=== PATIENT | female | born 1935 | race Caucasian/White ===

== ENCOUNTER 2023-05-05 11:52 | Inpatient (IN) ==
--- NOTE | 2023-05-05 12:21 | ED.PDOC ---
General ED Provider: Dr. WILLIAM ROSAS MD Chief Complaint: Neck Pain Non-Injury Stated Complaint: Patient with history of type 2 diabetes complains of acute onset of severe neck pain since yesterday states she may have hit her head against some towels yesterday. Patient of pain of her upper back and between her shoulder blades states pain is worse upon range of motion, denies history of trauma or injury. Denies radiation of pain from her neck into her arms. Denies associated headache, nausea, blurred vision, cough, fever, chills, arthralgia Time Seen by Provider: 05/05/23 12:19 Mode of Arrival: Wheelchair Information Source: Patient and Family Exam Limitations: No limitations Primary Care Provider: TRINI JERONIMO Seen Within Last 72 Hours for Same Complaint By: ED Nursing and Triage Documentation Reviewed and Agree: Yes What is Opioid Naive?: *Opioid Naive implies the patient is not already taking opioids or not chronically receiving opioids on a daily basis. *PRN dosing is not "usually" associated with tolerance. *Patients are at higher risk of over-sedation and aspiration. What is Opioid Tolerant?: *Opioid Tolerance implies less than the expected response to an opioid. *Acquired tolerance is defined by the patient taking 60mg of oral morphine daily (or equianalgesic dose of another opioid) for 1 week or more. *Often associated with chronic pain. *May take more than usual dose to achieve desired pain control. Review of Systems Review Of Systems Constitutional: Reports No symptoms Eyes: Reports No symptoms Ears, Nose, Mouth, Throat: Reports No symptoms Respiratory: Reports No symptoms Cardiac: Reports No symptoms GI: Reports No symptoms : Reports No symptoms Musculoskeletal: Reports Neck pain and Other (Mid to upper back pain) Skin: Reports No symptoms Neurological: Reports No symptoms Endocrine: Reports No symptoms Hematologic/Lymphatic: Reports No symptoms All Other Systems: Reviewed and Negative [facility] Medical History Acute Crohn's disease Anxiety Diabetes Female Reproductive History Menstrual Hx Hysterectomy: No Hx Tubal Ligation: No Physical Exam Physical Exam Appearance: Reports Ill-appearing and Other ( scalp examination there is no scalp swelling, tenderness, crepitus or ecchymosis) Ill-appearing: None Pain Distress: Moderate Eyes: Reports KATHIE, EOMI and Conjunctiva clear ENT: Reports Ears normal, Nose normal and Oropharynx normal Neck: Supple Respiratory: Reports Airway patent, Breath sounds clear and Breath sounds equal Cardiovascular: Reports RRR, Pulses normal, No rub and No murmur GI/: Reports Soft, Nontender, No masses and Bowel sounds normal Musculoskeletal: Reports Normal strength, Limited ROM and Other (There is moderate cervical vertebral and thoracic vertebral tenderness from T1-T10. There is no CVA tenderness on the.) Skin: Reports Warm and Dry Neurological: Reports Sensation intact, Motor intact, Reflexes intact, Cranial nerves intact and Alert Psychiatric: Reports Affect appropriate and Mood appropriate Interpretation Radiology Interpretation Radiology Interpretation By: Radiologist Radiology Results: Positive Exam Interpreted: CXR Xray Comments: Left basilar atelectasis Re-Evaluation Re-Evaluation Time of Re-Evaluation: 13:15 Status: Improved Vital Signs Stable: Yes Pain Level: pain resolved at 1315 with IV Toradol 15 mg Physician Notification Case Discussed Physician Notified: Discussed with hospitalist Keagan Holden Time of Notification: 16:25 Comments: Discussed results of all laboratory data and CT scan findings improved chest x- ray recommendations for observation Critical Care Note Critical Care Note Total Critical Care Time (mins): 0 Course Course 05/05/23 12:45 05/05/23 12:45 Orders, Labs, Meds: Lab Review 05/05/23 05/05/23 12:45 15:40 WBC 22.07 H RBC 4.68 Hgb 13.2 Hct 41.6 MCV 88.9 MCH 28.2 MCHC 31.7 L RDW Coeff of Juan Antonio 13.8 Plt Count 145 Immature Gran % (Auto) 0.5 Neut % (Auto) 92.9 H Lymph % (Auto) 1.6 L Wilson % (Auto) 4.9 Eos % (Auto) 0.0 Baso % (Auto) 0.1 Neut # (Auto) 20.5 H Lymph # (Auto) 0.4 L Wilson # (Auto) 1.1 Eos # (Auto) 0.0 Baso # (Auto) 0.0 Immature Gran # (Auto) 0.1 Sodium 129.3 L Potassium 4.15 Chloride 96.4 L Carbon Dioxide 27.1 Anion Gap 9.95 BUN 25.6 H Creatinine 0.93 Estimated GFR (MDRD) 57.00 BUN/Creatinine Ratio 27.52 Glucose 447.8 H Calcium 9.05 Total Bilirubin 1.15 AST 19.6 ALT 17.9 Alkaline Phosphatase 81.3 Total Protein 7.08 Albumin 3.97 Globulin 3.11 Albumin/Globulin Ratio 1.27 Urine Color Yellow Urine Clarity Cloudy Urine pH 5.0 Ur Specific [place] 1.020 Urine Protein 2+ H Urine Glucose (UA) 3+ H Urine Ketones Trace H Urine Blood Trace-intact H Urine Nitrite Negative Urine Bilirubin 1+ H Urine Urobilinogen 0.2 Ur Leukocyte Esterase Negative Urine Microscopic RBC 2-5 Ur Squamous Epith Cells 10-20 Ur Renal Epithelial Cell 2-5 Urine Bacteria Trace Urine Starch 2+ Acetone, Qual None Orders Category Date Time Status ED ACCUCHECK ASSESSMENT .ONCE EMERGENCY 05/05/23 14:40 Active ACETONE, QUALITATIVE Stat LAB 05/05/23 12:45 Completed BLOOD CULTURE (ED ONLY) Stat LAB 05/05/23 16:12 Ordered CBC W/ AUTO DIFF Stat LAB 05/05/23 12:45 Completed CMP [COMPREHENSIVE METABOLIC PANEL] Stat LAB 05/05/23 12:45 Completed COVID [SARS COV-2 RNA RAPID MALOU] Stat LAB 05/05/23 Uncollected URINALYSIS C & S IF INDICATED Stat LAB 05/05/23 15:40 Completed Insulin Regular, Human [Humulin R] Meds 05/05/23 13:10 Discontinued 4 unit IVP ONCE STA Ketorolac Tromethamine [Toradol] Meds 05/05/23 12:30 Discontinued 15 mg IVP ONCE STA Ondansetron HCl/Pf [Zofran 4 mg/2 ml] Meds 05/05/23 12:30 Discontinued 4 mg IVP ONCE STA Sodium Chloride 0.9% [Sodium Chloride] 500 ml Meds 05/05/23 12:30 Active IV BOLUS CHEST, 1V AP ONLY Stat RADS 05/05/23 13:[address] CERVICAL SPINE W/O CONTRAST Stat RADS 05/05/23 12:[address] HEAD W/O CONTRAST Stat RADS 05/05/23 12:[address] THORACIC SPINE W/O CONTRAST Stat RADS 05/05/23 12:30 Completed Medications Generic Name Dose Route Start Last Admin Trade Name Freq PRN Reason Stop Dose Admin Sodium Chloride 500 mls @ 100 mls/hr 05/05/23 12:30 05/05/23 12:52 Sodium Chloride IV 05/05/23 17:29 100 mls/hr BOLUS ONE Administration Discontinued Medications Generic Name Dose Route Start Last Admin Trade Name Freq PRN Reason Stop Dose Admin Insulin Human Regular 4 unit 05/05/23 13:10 05/05/23 13:28 Insulin Regular, Human 100 Unit/Ml (10ml) Vial IVP 05/05/23 13:11 4 unit ONCE STA Administration Ketorolac Tromethamine 15 mg 05/05/23 12:30 05/05/23 12:52 Ketorolac Tromethamine 15 Mg/Ml Vial IVP 05/05/23 12:31 15 mg ONCE STA Administration Ondansetron HCl 4 mg 05/05/23 12:30 05/05/23 12:52 Ondansetron Hcl/Pf 4 Mg/2 Ml Sdv IVP 05/05/23 12:31 4 mg ONCE STA Administration Vital Signs: Temp Pulse Resp BP Pulse Ox 05/05/23 11:58 97.8 F 86 20 138/84 94 L Discharge Plan Discharge Patient Disposition: PLACED OBSERVATION Discharge Problem: Hyperglycemia Leukocytosis Qualifiers: Leukocytosis type: unspecified Qualified Code(s): D72.829 - Elevated white blood cell count, unspecified Did you review [place] [employer] for ALL controlled substances?: Not Applicable ED Provider: WILLIAM ROSAS Condition: Stable Physician Progress Note: HISTORY obtained from the patient was his son who complains of acute onset of severe neck and upper back pain the past 2 days denies history of trauma injury unsure if she may have hit her head against the [place] yesterday but denies falling. Patient denies radiation of pain from her neck or back down her arms and legs. Denies difficulty breathing, shortness of breath, coughing, fever, chills. 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 Laboratory data CBC is within normal limits several white blood cell count of 22,000. The BMP is within normal limit except for a BUN of 25 and a glucose of 447. The acetone is negative. Portable chest x-ray interpretation radiologist consistent with atelectasis left base. The head CT scan without intravenous contrast interpretation per radiology shows no acute intracranial process. There is no hemorrhage there is no infarct there is no mass effect there is no midline shift. The thoracic spine CT without intravenous contrast is consistent with degenerative disc disease. Without evidence of fracture or subluxation. The cervical spine CT without intravenous contrast consistent with no acute fractures there is marked degenerative changes noted. There is disc narrowing from C2-C3, C3-C4, C4-C5, C5-C6, with anterior posterior osteophytes and C6-C7 with posterior osteophytes. Patient administered Toradol 15 mg IV with complete relief in pain at 1315 Patient given IV fluids normal saline 500 mL mL/hour, regular insulin 4 units IV. [id number] Patient has no known source of infection there is no tachycardia no tachypnea no fever. Urinalysis positive only for protein and glucose Differential diagnosis: 1) leukocytosis 2) hyperglycemia Discussed with hospitalist Keagan Holden at 1625 for observation []
[2023-05-05 12:50] LABS: BASOPHILS % (AUTO) 0.1 % (0.0-3.0); HEMATOCRIT 41.6 % (37.0-47.0); HEMOGLOBIN 13.2 g/dl (12.0-16.0); IMMATURE GRANULOCYTE # (AUTO) 0.1 (0.0-1.0); IMMATURE GRANULOCYTE % (AUTO) 0.5 % (0.0-5.0); LYMPHOCYTES # (AUTO) 0.4 K/uL (0.60-3.4); LYMPHOCYTES % (AUTO) 1.6 (10.0-50.0); MEAN CORPUSCULAR HEMOGLOBIN 28.2 pg (27.0-31.0); MEAN CORPUSCULAR HGB CONC 31.7 (31.8-35.4); MEAN CORPUSCULAR VOLUME 88.9 fl (81.0-99.0); MONOCYTES # (AUTO) 1.1 K/uL (0.4-2.0); MONOCYTES % (AUTO) 4.9 (0-10); NEUTROPHILS # (AUTO) 20.5 K/ul (2.0-6.9); NEUTROPHILS % (AUTO) 92.9 % (42.2-75.2); PLATELET COUNT 145 10^3/uL (140-440); RDW COEFFICIENT OF VARIATION 13.8 % (11.6-14.8); RED BLOOD COUNT 4.68 10^6/ul (4.20-5.40); WHITE BLOOD COUNT 22.07 K/ul (4.6-10.2)
[2023-05-05] MEDS: ZOFRAN 4 MG/2 ML IVP STA (12:52)
[2023-05-05] MEDS: TORADOL IVP STA (12:52)
[2023-05-05] MEDS: SODIUM CHLORIDE 500 ML IV ONE (12:52)
[2023-05-05 13:03] LABS: ALANINE AMINOTRANSFERASE 17.9 U/L (0-35); ALBUMIN 3.97 g/dL (3.5-5.0); ALKALINE PHOSPHATASE 81.3 U/L (53-141); ASPARTATE AMINO TRANSFERASE 19.6 U/L (14-36); BILIRUBIN,TOTAL 1.15 mg/dL (0.2-1.3); BLOOD UREA NITROGEN 25.6 mg/dL (7-17); CALCIUM 9.05 mg/dL (8.4-10.2); CARBON DIOXIDE 27.1 mmol/L (22-30.0); CHLORIDE 96.4 mmol/L (98-107); CREATININE 0.93 mg/dL (0.60-1.30); GLUCOSE 447.8 mg/dL (74-106); POTASSIUM 4.15 mmol/L (3.5-5.1); SODIUM 129.3 mmol/L (134.5-145); TOTAL PROTEIN 7.08 g/dL (6.3-8.2)
[2023-05-05] MEDS: HUMULIN R IVP STA (13:28)
--- NOTE | 2023-05-05 14:17 | DI ---
EXAM: CHEST RADIOGRAPH; SINGLE VIEW HISTORY: Coughing. COMPARISON: CT chest 02/17/2022. FINDINGS: Trachea is midline. Cardiomediastinal silhouette is within normal limits. Atelectasis in the left l jones base. No pneumothorax or large pleural effusions. Osseous structures are intact. IMPRESSION: Atelectasis in the left lung base.
--- NOTE | 2023-05-05 14:18 | CT ---
EXAMINATION: HEAD CT WITHOUT CONTRAST HISTORY: Trauma TECHNIQUE: Noncontrast CT of the brain was performed with images acquired from skull base to vertex. 2-D coronal and sagittal reformatted images were obtained from the axial source images. Contrast Dose: None. CT Dose Reduction Techniques Performed: Yes. COMPARISON: None. FINDINGS: Topogram demonstrates no significant abnormality. Intraparenchymal hemorrhage: None. Parenchyma: Normal wilde-white differentiation. No mass effect or midline shift. Chronic: Mild decreased attenuation of the periventricular white matter consistent with microangiopat hic ischemic change. Vascular calcifications consistent with arthrosclerosis. Extra-axial spaces and basal cisterns: Normal. Ventricles: Mild enlargement of the ventricles and subarachnoid spaces consistent with atrophy. Paranasal sinuses and mastoid air cells: Visualized portions of paranasal sinuses are clear. Mastoid air cells are clear. Orbits: Normal visualized portions. Sella/Skull Base: Normal. Other: Scalp and visualized soft tissues are normal. Calvarium is normal. IMPRESSION: 1. No acute intracranial process. 2. Mild microangiopathic ischemic changes and atrophy are noted. All CT scans are performed using dose optimization techniques as appropriate to the performed exam an d include at least one of the following: Automated exposure control, adjustment of the mA and/or kV according t o size, and the use of iterative reconstruction technique.
--- NOTE | 2023-05-05 14:21 | CT ---
EXAM: CT THORACIC SPINE WITHOUT CONTRAST HISTORY: Upper back pain COMPARISON: Correlation with CT chest from 02/17/2022. FINDINGS: Axial CT images of the thoracic spine without contrast and multiplanar reformatted images. Generalized osteopenia. This limits evaluation for subtle, nondisplaced fractures. As seen, no discrete fracture line. The vertebral body heights are grossly maintained. Multilevel degenerative changes. Curvature of the spine. Suspected bone island in the T4 vertebral body. ASVD. Atelectasis and / or scarring in the dependent lungs. IMPRESSION: No definitive findings of acute fracture. If symptoms persist, or if there is clinical concern for occult injury, recommend follow-up MRI exami nation. Please see above description. All CT scans are performed using dose optimization techniques as appropriate to the performed exam an d include at least one of the following: Automated exposure control, adjustment of the mA and/or kV according t o size, and the use of iterative reconstruction technique.
--- NOTE | 2023-05-05 14:24 | CT ---
EXAM: CT CERVICAL SPINE. HISTORY: Neck pain. No acute injury. COMPARISON: None. TECHNIQUE: Contiguous axial images at 2 mm intervals were obtained from the base of the skull to the thoracic spine. Sagittal and coronal reformats were reviewed. No contrast was given. FINDINGS: There is slight anterolisthesis of C4 and C5 measuring less than 2 mm. The vertebral heigh ts are well maintained. There are no acute or healing fractures. There are no lytic or blastic lesi ons. No disc bulges are identified. The soft tissues are normal. The airway is widely patent. Li mited views of the lung apices are normal. C 2-3: There is hypertrophy on the right. No spinal canal or neural foraminal narrowing. C 3-4: Disc narrowing. Facet hypertrophy, left greater right. Minimal left neural foraminal narrowi ng C 4-5: Disc narrowing. Facet perch on the right. Right neural foraminal narrowing. C 5-6: Disc narrowing. Anterior posterior osteophytes. Mild bilateral neural foraminal narrowing. C 6-7: Disc narrowing. Posterior osteophytes. Minimal bilateral neural foraminal narrowing. IMPRESSION: 1. No acute fractures. 2. Degenerative changes of the spine as described. All CT scans are performed using dose optimization techniques as appropriate to the performed exam an d include at least one of the following: Automated exposure control, adjustment of the mA and/or kV according t o size, and the use of iterative reconstruction technique.
[2023-05-05 15:46] LABS: BILIRUBIN,URINE 1+ (NEGATIVE); COLOR,URINE Yellow (YELLOW); KETONES,URINE Trace (NEGATIVE); LEUKOCYTE ESTERASE ,URINE Negative (NEGATIVE); NITRITE,URINE Negative (NEGATIVE); PROTEIN,URINE 2+ (NEGATIVE); URINE, BLOOD Trace-intact (NEGATIVE); UROBILINOGEN,URINE 0.2 (0.2)
[2023-05-05 15:51] LABS: CLARITY,URINE CLOUDY (CLEAR); GLUCOSE, URINE (UA) 3+ (NEGATIVE)
[2023-05-05 15:53] LABS: BACTERIA,URINE TRACE (NOT PRESENT); STARCH,URINE 2+ (NOT PRESENT)
[2023-05-05] MEDS ORDERED: ZOFRAN 4 MG/2 ML IVP PRN (16:39)
[2023-05-05 16:50] LABS: SARS COV-2 RNA RAPID NAAT NEGATIVE (NEGATIVE)
[2023-05-05 17:25] LABS: MOLECULAR FLU A NEGATIVE BY NAAT (NEGATIVE); MOLECULAR FLU B NEGATIVE BY NAAT (NEGATIVE); RSV MOLECULAR NEGATIVE BY NAAT (NEGATIVE)
[2023-05-05] MEDS: ROCEPHIN 1 GM/50 ML D5W 1 GM/50 ML BAG IV ONE (17:27)
[2023-05-05 18:53] VITALS: BMI 25.2
[2023-05-05 19:13] LABS: HEMATOCRIT 42.5 % (37.0-47.0); HEMOGLOBIN 13.7 g/dl (12.0-16.0); MEAN CORPUSCULAR HEMOGLOBIN 28.9 pg (27.0-31.0); MEAN CORPUSCULAR HGB CONC 32.2 (31.8-35.4); MEAN CORPUSCULAR VOLUME 89.7 fl (81.0-99.0); PLATELET COUNT 121 10^3/uL (140-440); RDW COEFFICIENT OF VARIATION 13.7 % (11.6-14.8); RED BLOOD COUNT 4.74 10^6/ul (4.20-5.40)
[2023-05-05 19:16] LABS: WHITE BLOOD COUNT 13.43 K/ul (4.6-10.2)
[2023-05-05 19:17] LABS: ANISOCYTOSIS NOT PRESENT (NOT PRESENT)
[2023-05-05] MEDS: SODIUM CHLORIDE 1,000 ML IV SCH (20:51)
[2023-05-05] MEDS: HUMULIN R SUBCUT PRN (20:52)
[2023-05-05 21:26] LABS: BORDETELLA PARAPERTUSSIS (PCR) NOT DETECTED (NOT DETECT); BORDETELLA PERTUSSIS (PCR) NOT DETECTED (NOT DETECT); CHLAMYDIA PNEUMONIAE (PCR) NOT DETECTED (NOT DETECT); CORONAVIRUS 229E (PCR) NOT DETECTED (NOT DETECT); CORONAVIRUS HKU1 (PCR) NOT DETECTED (NOT DETECT); CORONAVIRUS NL63 (PCR) NOT DETECTED (NOT DETECT); CORONAVIRUS OC43 (PCR) NOT DETECTED (NOT DETECT); HUMAN METAPNEUMOVIRUS (PCR) NOT DETECTED (NOT DETECT); HUMAN RHINOVIRUS/ENTEROV (PCR) NOT DETECTED (NOT DETECT); INFLUENZA B (PCR) NOT DETECTED (NOT DETECT); MYCOPLASMA PNEUMONIAE (PCR) NOT DETECTED (NOT DETECT); PARAINFLUENZA VIRUS 1 (PCR) NOT DETECTED (NOT DETECT); PARAINFLUENZA VIRUS 2 (PCR) NOT DETECTED (NOT DETECT); PARAINFLUENZA VIRUS 3 (PCR) NOT DETECTED (NOT DETECT); PARAINFLUENZA VIRUS 4 (PCR) NOT DETECTED (NOT DETECT); RESPIRATORY SYNCYTIAL V (PCR) NOT DETECTED (NOT DETECT); SARS_COV_2 (PCR) NOT DETECTED (NOT DETECT)
[2023-05-05] MEDS: MAXIPIME 2 GM/50 ML D5W 2 GM/50 ML BAG IV SCH (22:03)
--- NOTE | 2023-05-05 22:07 | CT ---
EXAM: CHEST CTA WITH CONTRAST (PULMONARY ARTERY) HISTORY: TECHNIQUE: CTA acquisition of the chest from the thoracic inlet to the upper abdomen following IV con trast administration timed to filling of the pulmonary artery. IV Contrast: . 3D/MIP/VR images Yes. CT Dose Reduction Techniques Employed: Yes. COMPARISON: FINDINGS: Lines, Tubes, Devices: None. Pulmonary Embolism: - Diagnostic quality: Evaluation of the subsegmental vessels in the lung base is limited due to motio n artifact.. - Central(Main/Lobar/Interlobar): No embolus. - Peripheral (Segmental/Subsegmental): No embolus. - Right ventricle/Left ventricle ratio (normal <0.9): Normal. Lung Parenchyma and Airways: Central airways are patent without endobronchial lesion. No focal consolidation. There is a noncalcified nodule in the right middle lobe, axial image 59 of series five. There is a s econd noncalcified nodule in the right middle lobe measuring up to 0.7 x 0.6 cm also in the right mid dle lobe, axial image 87. On the coronal reformats, this may the larger, measuring up to 1.6 cm. Ho wever evaluation limited due to motion.. Pleural Space: No pleural effusion. No pleural thickening. No pneumothorax. Thoracic Inlet, Mediastinum, and Marcy: Thyroid gland is normal. There is right hilar lymph node mirna uring 1.3 cm.. Heart, Vessels, and Pericardium: -Aorta is normal in caliber with mild atherosclerotic calcifications. -Main pulmonary artery is normal in caliber. -Heart chambers are not enlarged. -No significant valvular calcifications. -No significant coronary artery calcifications, however exam is not optimized for evaluation. -No pericardial effusion or thickening. Bones and Soft Tissues: Visualized bones are within normal limits. Chest wall soft tissues are withi n normal limits. Upper Abdomen: Within normal limits. IMPRESSION: 1. Technically limited study due to motion artifact. Evaluation of the segmental vessels in the lacho g bases is limited. No definite pulmonary embolus. 2. No acute pulmonary disease. 3. Pulmonary nodules in the right middle lobe. Evaluation is limited due to the motion artifact. C onsider follow-up and [address] scans are performed using dose optimization techniques as appropriate to the performed exam an d include at least one of the following: Automated exposure control, adjustment of the mA and/or kV according t o size, and the use of iterative reconstruction technique.
[2023-05-05 22:31] LABS: ADENOVIRUS (PCR) NOT DETECTED (NOT DETECT)
[2023-05-05] MEDS: VANCOMYCIN 1.5 GRAM/300 ML PREMIX 1.5 GM/300 ML BAG IV ONE (23:22)
[2023-05-06] MEDS: TYLENOL PO PRN (03:59)
[2023-05-06 06:54] LABS: BASOPHILS % (AUTO) 0.1 % (0.0-3.0); HEMATOCRIT 37.8 % (37.0-47.0); HEMOGLOBIN 11.7 g/dl (12.0-16.0); IMMATURE GRANULOCYTE # (AUTO) 0.1 (0.0-1.0); IMMATURE GRANULOCYTE % (AUTO) 0.8 % (0.0-5.0); LYMPHOCYTES # (AUTO) 0.3 K/uL (0.60-3.4); MEAN CORPUSCULAR HEMOGLOBIN 28.1 pg (27.0-31.0); MEAN CORPUSCULAR VOLUME 90.6 fl (81.0-99.0); MONOCYTES # (AUTO) 0.7 K/uL (0.4-2.0); MONOCYTES % (AUTO) 5.2 (0-10); NEUTROPHILS # (AUTO) 12.5 K/ul (2.0-6.9); NEUTROPHILS % (AUTO) 91.9 % (42.2-75.2); PLATELET COUNT 112 10^3/uL (140-440); RED BLOOD COUNT 4.17 10^6/ul (4.20-5.40); WHITE BLOOD COUNT 13.56 K/ul (4.6-10.2)
[2023-05-06 07:16] LABS: ALANINE AMINOTRANSFERASE 18.2 U/L (0-35); ALBUMIN 3.26 g/dL (3.5-5.0); ALKALINE PHOSPHATASE 77.2 U/L (53-141); ASPARTATE AMINO TRANSFERASE 29.8 U/L (14-36); BILIRUBIN,TOTAL 0.71 mg/dL (0.2-1.3); BLOOD UREA NITROGEN 37.3 mg/dL (7-17); CALCIUM 8.95 mg/dL (8.4-10.2); CREATININE 1.04 mg/dL (0.60-1.30); GLUCOSE 292.7 mg/dL (74-106); SODIUM 130.9 mmol/L (134.5-145); TOTAL PROTEIN 6.19 g/dL (6.3-8.2)
[2023-05-06 07:19] LABS: CHLORIDE 100.9 mmol/L (98-107)
[2023-05-06 07:27] LABS: POTASSIUM 3.64 mmol/L (3.5-5.1)
[2023-05-06] MEDS: VANCOMYCIN 1 GRAM/200 ML PREMIX 1 GM/200 ML BAG IV SCH (07:48)
[2023-05-06] MEDS: LEXAPRO PO SCH (10:02)
--- NOTE | 2023-05-06 10:29 | CT ---
EXAM: CT ABDOMEN AND PELVIS WITHOUT CONTRAST TECHNIQUE: CT acquisition of the abdomen and pelvis from the lower thorax through the pelvis without IV contrast administration. 2-D coronal and sagittal reformatted images were obtained from the axial source images. Oral Contrast: None. CT Dose Reduction Techniques Performed: Yes. COMPARISON: 05/05/2023 HISTORY: Abdominal pain FINDINGS: LUNG BASES: Please refer to CT of the chest on 05/05/2023 for details. LIVER: No suspicious mass or biliary ductal dilatation. GALLBLADDER: Gallstones are identified. PANCREAS: No mass or evidence of pancreatitis. No duct dilation. SPLEEN: No mass. No splenomegaly. ADRENALS: Normal. KIDNEYS/URETERS: No suspicious mass, stone, or hydronephrosis. GI TRACT: The stomach and small bowel are normal. Colonic diverticulosis is identified, without evid ence of diverticulitis. A small ventral infraumbilical small bowel containing hernia is identified. No bowel wall thickening or dilation. URINARY BLADDER: Normal. REPRODUCTIVE ORGANS: No abnormality identified. LYMPH NODES: No lymphadenopathy. VASCULATURE: Calcified arterial plaque is identified. No significant aortic aneurysm. The visualized portal and mesenteric veins appear within normal limits. The IVC is normal. OTHER: None. OSSEOUS/SOFT TISSUES: No suspicious osteolytic, or osteoblastic lesion. No acute fracture. Age-relat ed degenerative changes are noted. IMPRESSION: 1. No acute findings in the abdomen or pelvis. 2. Colonic diverticulosis is identified, without diverticulitis. 3. Cholelithiasis. All CT scans are performed using dose optimization techniques as appropriate to the performed exam an d include at least one of the following: Automated exposure control, adjustment of the mA and/or kV according t o size, and the use of iterative reconstruction technique.
--- NOTE | 2023-05-06 11:46 | PCM ---
Date of Service Date Seen by Provider: 05/06/23 Time Seen by Provider: 08:00 Admit Day/Time Admission Date: 05/05/23 Reason for Admission Chief Complaint: HYPERGLYCEMIA, LEUKOCYTOSIS Hospital Provider Hospital Provider: MERYL BHARDWAJ, [facility] Primary Care Physician Primary Care Physician: TRINI JERONIMO History of Present Illness History of Present Illness: 87 yo female presented to the ER with complaints of neck/back pain. Son reports that patient has generally not felt well over the last couple days. No specific complaints other than the midback/neck pain. 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 Describes the pain as a spasm. Denies any fever at home, chills, chest pain, sob, n/v/d. Denies any open wounds. Has reddened area to left labia that "has been there for a long time". No open area, just redness present. Patient's WBC count in ER was found to be 22. No obvious source of infection. Patient spiked fever prior to admission and blood cultures were obtained. Given rocephin in ER. Admitted to med/surg for sepsis r/o. Patient has been intermittently confused since admission. Case Discussed With Case Discussed With: Patient's case was discussed with the ER Physicians, Dr. Weir. [facility] Medical History Anxiety F41.9 - Anxiety disorder, unspecified (ICD-10) Acute Crohn's disease K50.90 - Crohn's disease, unspecified, without complications (ICD-10) Diabetes E11.9 - Type 2 diabetes mellitus without complications (ICD-10) Family History FATHER Aneurysm Social History Smoking and tobacco status: Never smoker Alcohol intake: never Substance use type: does not use Allergies Allergies Allergy/AdvReac Type Severity Reaction Status Date / Time No Known Allergies Allergy Verified 05/05/23 11:58 Current Medications Home Medications dorzolamide 22.3 mg-timolol 6.8 mg/mL eye drops 1 drp BOTHEYES BID 01/24/20 [History Confirmed 05/05/23 Last Taken Unknown] escitalopram oxalate 5 mg tablet 5 mg PO DAILY 01/24/20 [History Confirmed 05/05/23 Last Taken Unknown] glimepiride 4 mg tablet 4 mg PO BID 01/24/20 [History Confirmed 05/05/23 Last Taken Unknown] latanoprost 0.005 % eye drops 1 drp BOTHEYES BEDTIME 01/24/20 [History Confirmed 05/05/23 Last Taken Unknown] metformin 1,000 mg tablet 1,000 mg PO BID 01/24/20 [History Confirmed 05/05/23 Last Taken Unknown] bimatoprost 0.01 % eye drops (Lumigan) 1 drp BOTHEYES ONCE 05/05/23 [History Confirmed 05/05/23 Last Taken Unknown] dulaglutide 1.5 mg/0.5 mL subcutaneous pen injector (Trulicity) 1.5 mg subcut WEEKLY 05/05/23 [History Confirmed 05/05/23 Last Taken Unknown] ergocalciferol (vitamin D2) 1,250 mcg (50,000 unit) capsule 1,250 mcg PO WEEKLY 05/05/23 [History Confirmed 05/06/23 Last Taken Unknown] Home Acetaminophen (Acetaminophen 325 Mg Tablet) 650 mg PO Q4H PRN PRN Reason: Mild Pain Last Admin: 05/07/23 17:11 Dose: 650 mg Amlodipine Besylate (Amlodipine Besylate 5 Mg Tablet) 5 mg PO DAILY [facility] Last Admin: 05/08/23 08:39 Dose: 5 mg Aspirin (Aspirin 81 Mg Tab.Chew) 81 mg PO DAILYWM2 [facility] Last Admin: 05/08/23 08:39 Dose: 81 mg Atorvastatin Calcium (Atorvastatin Calcium 20 Mg Tablet) 40 mg PO BEDTIME [facility] Last Admin: 05/07/23 20:42 Dose: 40 mg Ergocalciferol (Ergocalciferol (Vitamin D2) 50,000 Unit Capsule) 50,000 unit PO WEEKLY [facility] Escitalopram Oxalate (Escitalopram Oxalate 10 Mg Tablet) 5 mg PO DAILY [facility] Last Admin: 05/08/23 08:39 Dose: 5 mg Hydrocortisone (Hydrocortisone 28 Gm Cream) 1 applic TP DAILY [facility] Last Admin: 05/08/23 08:40 Dose: 1 applic Cefazolin Sodium/Dextrose (Ancef 1 Gm/50 Ml D5w) 2 gm in 100 mls @ 150 mls/hr IV Q8HR LUIZA Stop: 05/11/23 12:59 Insulin Human Regular (Insulin Regular, Human 100 Unit/Ml (10ml) Vial) 0 unit SUBCUT PRN PRN; Protocol PRN Reason: Hyperglycemia Last Admin: 05/08/23 06:11 Dose: 6 unit Ketorolac Tromethamine (Ketorolac Tromethamine 15 Mg/Ml Vial) 15 mg IVP Q6HR PRN PRN Reason: Pain Stop: 05/10/23 12:41 Last Admin: 05/08/23 06:06 Dose: 15 mg Ondansetron HCl (Ondansetron Hcl/Pf 4 Mg/2 Ml Sdv) 4 mg IVP Q6H PRN PRN Reason: Nausea / Vomiting Discontinued Medications Sodium Chloride (Sodium Chloride) 500 mls @ 100 mls/hr IV BOLUS ONE Stop: 05/05/23 17:29 Last Infusion: 05/05/23 18:42 Dose: Infused Sodium Chloride (Sodium Chloride) 1,000 mls @ 100 mls/hr IV .Q10H [facility] Last Infusion: 05/08/23 08:27 Dose: Infused CEFTRIAXONE/D5W 1 GM PREMIX (Rocephin 1 Gm/50 Ml D5w) 1 gm in 50 mls @ 100 mls/hr IV ONCE ONE Stop: 05/05/23 17:22 Last Admin: 05/05/23 17:27 Dose: 100 mls/hr VANCOMYCIN/WATER FOR INJ (PEG) (Vancomycin 1 Gram/200 Ml Premix) 1 gm in 200 mls @ 200 mls/hr IV BEDTIME LUIZA Stop: 05/09/23 22:00 Last Admin: 05/07/23 21:34 Dose: 200 mls/hr CEFEPIME 2 GM/D5W (Maxipime 2 Gm/50 Ml D5w) 2 gm in 50 mls @ 100 mls/hr IV Q12 HR LUIZA Stop: 05/09/23 11:00 Last Admin: 05/07/23 20:42 Dose: 100 mls/hr VANCOMYCIN/WATER FOR INJ (PEG) (Vancomycin 1.5 Gram/300 Ml Premix) 1.5 gm in 300 mls @ 200 mls/hr IV ONCE ONE Stop: 05/05/23 23:59 Last Admin: 05/05/23 23:22 Dose: 200 mls/hr Insulin Human Regular (Insulin Regular, Human 100 Unit/Ml (10ml) Vial) 4 unit IVP ONCE STA Stop: 05/05/23 13:11 Last Admin: 05/05/23 13:28 Dose: 4 unit Insulin Human Regular (Insulin Regular, Human 100 Unit/Ml (10ml) Vial) 0 unit SUBCUT PRN PRN; Protocol PRN Reason: Hyperglycemia Last Admin: 05/07/23 06:15 Dose: 5 unit Ketorolac Tromethamine (Ketorolac Tromethamine 15 Mg/Ml Vial) 15 mg IVP ONCE STA Stop: 05/05/23 12:31 Last Admin: 05/05/23 12:52 Dose: 15 mg Ondansetron HCl (Ondansetron Hcl/Pf 4 Mg/2 Ml Sdv) 4 mg IVP ONCE STA Stop: 05/05/23 12:31 Last Admin: 05/05/23 12:52 Dose: 4 mg Potassium Chloride (Potassium Chloride 20 Meq Tab) 40 meq PO ONCE ONE Stop: 05/08/23 08:15 Last Admin: 05/08/23 08:39 Dose: 40 meq Opioid Naive vs. Tolerant Does Patient Take Opioids?: No Is Patient Opioid Naive?: Yes What is Opioid Naive?: *Opioid Naive implies the patient is not already taking opioids or not chronically receiving opioids on a daily basis. *PRN dosing is not "usually" associated with tolerance. *Patients are at higher risk of over-sedation and aspiration. Is Patient Opioid Tolerant?: No What is Opioid Tolerant?: *Opioid Tolerance implies less than the expected response to an opioid. *Acquired tolerance is defined by the patient taking 60mg of oral morphine daily (or equianalgesic dose of another opioid) for 1 week or more. *Often associated with chronic pain. *May take more than usual dose to achieve desired pain control. Review of Systems Constitutional: Reports No symptoms Head: Reports Normocephalic Eyes: Reports No symptoms Ears: Reports No symptoms Nose: Reports No symptoms Mouth: Reports No symptoms Throat: Reports No symptoms Respiratory: Reports No symptoms Gastrointestinal: Reports No symptoms Genitourinary: Reports Other (labial redness) Musculoskeletal: Reports Neck Pain and Back Pain Endocrine: Reports No symptoms Hematology: Reports No symptoms Immunology: Reports No symptoms Neurological: Reports No symptoms Psychiatric: Reports No symptoms Physical examination Most Recent Vital Signs: Most Recent Vital Signs Temperature 97.6 F 05/06/23 09:48 Temperature Source Tympanic 05/06/23 09:48 Temperature Source Infrared 05/05/23 16:30 Pulse Rate 84 05/06/23 09:48 Respiratory Rate 18 05/06/23 09:48 Blood Pressure 124/52 L 05/06/23 09:48 Blood Pressure Mean 76 05/06/23 09:48 Blood Pressure Left Arm 184/56 05/05/23 18:31 Blood Pressure Location Left Arm 05/06/23 09:48 Blood Pressure Position Supine 05/06/23 09:48 O2 Sat by Pulse Oximetry 98 05/06/23 09:48 Oxygen Delivery Method Nasal Cannula 05/06/23 09:48 Oxygen Flow Rate 2 05/06/23 09:48 Height 5 ft 5 in 05/05/23 18:31 Weight 151 lb 12.8 oz 05/05/23 18:31 Telemetry Type Remote Telemetry 05/06/23 07:00 Telemetry Monitoring Continues 05/06/23 07:00 Telemetry Heart Rate 92 05/06/23 07:00 EKG [place] Interval 0.22 H 05/06/23 07:00 EKG QRS Interval 0.09 05/06/23 07:00 Telemetry Strip Reading SR with 1st Degree AVB 05/06/23 07:00 Appearance: Positive No Apparent Distress and Ill-Appearing Skin: Positive Warm HEENT: Positive Normocephalic and PERRLA Neck: Positive Supple and Midline Trachea Chest/Lungs: Positive Symmetrical With Equal Breath Sounds, Clear to Auscultation Bilaterally and Good Air Movement all 4 Lung Mello Heart: Positive RRR and Pulses Normal GI/: Positive Soft, Nontender, Bowel Sounds Normal and No Distention Musculoskeletal: Positive Tenderness (diffuse to back and neck, no instability or rigidity ) Extremities: Positive Intact Peripheral Pulses, Stable Joints Without Laxity and Good ROM in All Joints Neurological: Positive Sensation Intact, Motor intact, Reflexes Intact, Alert, Disorinted and Other (weakness) Labs This Visit Labs This Visit: Labs This Visit 05/05/23 05/05/23 05/05/23 12:45 15:40 16:28 WBC 22.07 H RBC 4.68 Hgb 13.2 Hct 41.6 MCV 88.9 MCH 28.2 MCHC 31.7 L RDW Coeff of Juan Antonio 13.8 Plt Count 145 Immature Gran % (Auto) 0.5 Neut % (Auto) 92.9 H Lymph % (Auto) 1.6 L Mcleod % (Auto) 4.9 Eos % (Auto) 0.0 Baso % (Auto) 0.1 Neut # (Auto) 20.5 H Lymph # (Auto) 0.4 L Mcleod # (Auto) 1.1 Eos # (Auto) 0.0 Baso # (Auto) 0.0 Immature Gran # (Auto) 0.1 Neutrophils % (Manual) Band Neutrophils % Lymphocytes % (Manual) Monocytes % (Manual) Reactive Lymphocytes Anisocytosis Sodium 129.3 L Potassium 4.15 Chloride 96.4 L Carbon Dioxide 27.1 Anion Gap 9.95 BUN 25.6 H Creatinine 0.93 Estimated GFR (MDRD) 57.00 BUN/Creatinine Ratio 27.52 Glucose 447.8 H Hemoglobin A1c 8.78 H Calcium 9.05 Total Bilirubin 1.15 AST 19.6 ALT 17.9 Alkaline Phosphatase 81.3 Total Protein 7.08 Albumin 3.97 Globulin 3.11 Albumin/Globulin Ratio 1.27 Procalcitonin Urine Color Yellow Urine Clarity Cloudy Urine pH 5.0 Ur Specific Sarles 1.020 Urine Protein 2+ H Urine Glucose (UA) 3+ H Urine Ketones Trace H Urine Blood Trace-intact H Urine Nitrite Negative Urine Bilirubin 1+ H Urine Urobilinogen 0.2 Ur Leukocyte Esterase Negative Urine Microscopic RBC 2-5 Ur Squamous Epith Cells 10-20 Ur Renal Epithelial Cell 2-5 Urine Bacteria Trace Urine Starch 2+ Acetone, Qual None Adenovirus (PCR) B. pertussis DNA (PCR) B.parapertussis DNA PCR C. pneumoniae DNA (PCR) Coronavirus OC43 (PCR) Coronavirus HKU1 (PCR) Coronavirus 229E (PCR) Coronavirus NL63 (PCR) Human Metapneumovir PCR Influenza Type A (PCR) Influ A Molecular Assay Influenza B (RT-PCR) Influ B Molecular Assay M. pneumoniae (PCR) Parainfluenza 1 (PCR) Parainfluenza 2 (PCR) Parainfluenza 3 (PCR) Parainfluenza 4 (PCR) RSV Antigen RSV (PCR) Entero/Rhino (PCR) SARS-CoV-2 (PCR) SARS CoV-2 RNA Rapid MALOU Negative 05/05/23 05/05/23 05/05/23 16:48 19:03 21:15 WBC 13.43 H D RBC 4.74 Hgb 13.7 Hct 42.5 MCV 89.7 MCH 28.9 MCHC 32.2 RDW Coeff of Juan Antonio 13.7 Plt Count 121 L Immature Gran % (Auto) Neut % (Auto) Lymph % (Auto) Mcleod % (Auto) Eos % (Auto) Baso % (Auto) Neut # (Auto) Lymph # (Auto) Mcleod # (Auto) Eos # (Auto) Baso # (Auto) Immature Gran # (Auto) Neutrophils % (Manual) 90.0 H Band Neutrophils % 3.0 Lymphocytes % (Manual) 3.0 L Monocytes % (Manual) 1.0 Reactive Lymphocytes 3.0 Anisocytosis Not present Sodium Potassium Chloride Carbon Dioxide Anion Gap BUN Creatinine Estimated GFR (MDRD) BUN/Creatinine Ratio Glucose Hemoglobin A1c Calcium Total Bilirubin AST ALT Alkaline Phosphatase Total Protein Albumin Globulin Albumin/Globulin Ratio Procalcitonin 10.08 H Urine Color Urine Clarity Urine pH Ur Specific Sarles Urine Protein Urine Glucose (UA) Urine Ketones Urine Blood Urine Nitrite Urine Bilirubin Urine Urobilinogen Ur Leukocyte Esterase Urine Microscopic RBC Ur Squamous Epith Cells Ur Renal Epithelial Cell Urine Bacteria Urine Starch Acetone, Qual Adenovirus (PCR) Not detected B. pertussis DNA (PCR) Not detected B.parapertussis DNA PCR Not detected C. pneumoniae DNA (PCR) Not detected Coronavirus OC43 (PCR) Not detected Coronavirus HKU1 (PCR) Not detected Coronavirus 229E (PCR) Not detected Coronavirus NL63 (PCR) Not detected Human Metapneumovir PCR Not detected Influenza Type A (PCR) Not detected Influ A Molecular Assay Negative by naat Influenza B (RT-PCR) Not detected Influ B Molecular Assay Negative by naat M. pneumoniae (PCR) Not detected Parainfluenza 1 (PCR) Not detected Parainfluenza 2 (PCR) Not detected Parainfluenza 3 (PCR) Not detected Parainfluenza 4 (PCR) Not detected RSV Antigen Negative by naat RSV (PCR) Not detected Entero/Rhino (PCR) Not detected SARS-CoV-2 (PCR) Not detected SARS CoV-2 RNA Rapid MALOU 05/05/23 05/06/23 21:21 06:41 WBC 13.56 H RBC 4.17 L Hgb 11.7 L Hct 37.8 MCV 90.6 MCH 28.1 MCHC 31.0 L RDW Coeff of Juan Antonio 14.0 Plt Count 112 L Immature Gran % (Auto) 0.8 Neut % (Auto) 91.9 H Lymph % (Auto) 2.0 L Mcleod % (Auto) 5.2 Eos % (Auto) 0.0 Baso % (Auto) 0.1 Neut # (Auto) 12.5 H Lymph # (Auto) 0.3 L Mcleod # (Auto) 0.7 Eos # (Auto) 0.0 Baso # (Auto) 0.0 Immature Gran # (Auto) 0.1 Neutrophils % (Manual) Band Neutrophils % Lymphocytes % (Manual) Monocytes % (Manual) Reactive Lymphocytes Anisocytosis Sodium 130.9 L Potassium 3.64 Chloride 100.9 Carbon Dioxide 23.0 Anion Gap 10.64 BUN 37.3 H Creatinine 1.04 Estimated GFR (MDRD) 50.00 BUN/Creatinine Ratio 35.86 Glucose 292.7 H D Hemoglobin A1c Calcium 8.95 Total Bilirubin 0.71 AST 29.8 ALT 18.2 Alkaline Phosphatase 77.2 Total Protein 6.19 L Albumin 3.26 L Globulin 2.93 Albumin/Globulin Ratio 1.11 Procalcitonin 10.38 H 7.75 H Urine Color Urine Clarity Urine pH Ur Specific Sarles Urine Protein Urine Glucose (UA) Urine Ketones Urine Blood Urine Nitrite Urine Bilirubin Urine Urobilinogen Ur Leukocyte Esterase Urine Microscopic RBC Ur Squamous Epith Cells Ur Renal Epithelial Cell Urine Bacteria Urine Starch Acetone, Qual Adenovirus (PCR) B. pertussis DNA (PCR) B.parapertussis DNA PCR C. pneumoniae DNA (PCR) Coronavirus OC43 (PCR) Coronavirus HKU1 (PCR) Coronavirus 229E (PCR) Coronavirus NL63 (PCR) Human Metapneumovir PCR Influenza Type A (PCR) Influ A Molecular Assay Influenza B (RT-PCR) Influ B Molecular Assay M. pneumoniae (PCR) Parainfluenza 1 (PCR) Parainfluenza 2 (PCR) Parainfluenza 3 (PCR) Parainfluenza 4 (PCR) RSV Antigen RSV (PCR) Entero/Rhino (PCR) SARS-CoV-2 (PCR) SARS CoV-2 RNA Rapid MALOU Microbiology This Visit 05/05/23 16:12 Blood Blood Culture - Final 05/05/23 16:37 Blood Blood Culture - Final Imaging Imaging: EXAM: HEAD CT WITHOUT CONTRAST IMPRESSION: 1. No acute intracranial process. 2. Mild microangiopathic ischemic changes and atrophy are noted. EXAM: CT ABDOMEN AND PELVIS WITHOUT CONTRAST IMPRESSION: 1. No acute findings in the abdomen or pelvis. 2. Colonic diverticulosis is identified, without diverticulitis. 3. Cholelithiasis. EXAM: CT THORACIC SPINE WITHOUT CONTRAST FINDINGS: Axial CT images of the thoracic spine without contrast and multiplanar reformatted images. Generalized osteopenia. This limits evaluation for subtle, nondisplaced fr actures. As seen, no discrete fracture line. The vertebral body heights are grossly maintained. Multilevel degenerative changes. Curvature of the spine. Suspected bone island in the T4 vertebral body. ASVD. Atelectasis and / or scarring in the dependent lungs. IMPRESSION: No definitive findings of acute fracture. If symptoms persist, or if there is clinical concern for occult injury, recommend follow-up MRI examination. EXAM: CT CERVICAL SPINE. FINDINGS: There is slight anterolisthesis of C4 and C5 measuring less than 2 mm. The vertebral heights are well maintained. There are no acute or healing fractures. There are no lytic or blastic lesions. No disc bulges are identified. The soft tissues are normal. The airway is widely patent. Limited views of the lung apices are normal. C 2-3: There is hypertrophy on the right. No spinal canal or neural foraminal narrowing. C 3-4: Disc narrowing. Facet hypertrophy, left greater right. Minimal left neural foraminal narrowing C 4-5: Disc narrowing. Facet perch on the right. Right neural foraminal narrowing. C 5-6: Disc narrowing. Anterior posterior osteophytes. Mild bilateral neural f oraminal narrowing. C 6-7: Disc narrowing. Posterior osteophytes. Minimal bilateral neural foraminal narrowing. IMPRESSION: 1. No acute fractures. 2. Degenerative changes of the spine as described. EXAM: CHEST CTA WITH CONTRAST (PULMONARY ARTERY) FINDINGS: Lines, Tubes, Devices: None. Pulmonary Embolism: - Diagnostic quality: Evaluation of the subsegmental vessels in the lung base is limited due to motion artifact.. - Central(Main/Lobar/Interlobar): No embolus. - Peripheral (Segmental/Subsegmental): No embolus. - Right ventricle/Left ventricle ratio (normal <0.9): Normal. Lung Parenchyma and Airways: Central airways are patent without endobronchial lesion. No focal consolidation. There is a noncalcified nodule in the right middle lobe, axial image 59 of se sonia five. There is a second noncalcified nodule in the right middle lobe measuring up to 0.7 x 0.6 cm also in the right middle lobe, axial image 87. On the coronal reformats, this may the larger, measuring up to 1.6 cm. However evaluation limited due to motion.. Pleural Space: No pleural effusion. No pleural thickening. No pneumothorax. Thoracic Inlet, Mediastinum, and Marcy: Thyroid gland is normal. There is right hilar lymph node measuring 1.3 cm.. Heart, Vessels, and Pericardium: -Aorta is normal in caliber with mild atherosclerotic calcifications. -Main pulmonary artery is normal in caliber. -Heart chambers are not enlarged. -No significant valvular calcifications. -No significant coronary artery calcifications, however exam is not optimized for evaluation. -No pericardial effusion or thickening. Bones and Soft Tissues: Visualized bones are within normal limits. Chest wall soft tissues are within normal limits. Upper Abdomen: Within normal limits. IMPRESSION: 1. Technically limited study due to motion artifact. Evaluation of the segmental vessels in the lung bases is limited. No definite pulmonary embolus. 2. No acute pulmonary disease. 3. Pulmonary nodules in the right middle lobe. Evaluation is limited due to the motion artifact. Consider follow-up and 3 months. Review Statement Review Statement: I have independently reviewed and interpreted the labs/EKGs/imaging that were ordered by the ER provider. I have reviewed all outside records that are available currently in our EMR including imaging/notes/labs from previous visits. Plan Plan: 1. Sepsis - blood cultures showing growth of gram + cocci, will repeat when C&S complete; cefepime and vanc ordered, all imaging negative, unknown source at this time, trend procal 2. Hyponatremia - mild, NS@100mL/hr, repeat cmp in am 3. Thrombocytopenia - secondary to #1, monitor 4. Diabetes, type 2 - ada diet, accuchecks qid with ssi, hold oral agents 5. Lung nodules - concern for cancer, discussed options with patient, does not wish for intervention 6. LAITH - CPAP or oxygen 7. Vaginitis - treating with hydrocortizone to affected area DVT Prophylaxis: Holding due to thrombocytopenia, kelsie hose Time Spent: Greater than 80 minutes spent with patient, 50% of the time spent with this patient was devoted to counseling and coordination of care. [facility] minutes spent discussing advance care planning. Disposition: Admit to: Med/Surg Inpatient Full Code Discussed Plan of Care with Dr. Margarette Garcia Medications Medication Orders: Medications Ordered Category Date Time Status Acetaminophen [Tylenol] Meds 05/05/23 16:39 Active 650 mg PO Q4H PRN Cefepime 2 gm/D5w [Maxipime 2 gm/50 ml D5w] Meds 05/05/23 21:00 Active 2 gm in 50 ml IV Q12HR Ergocalciferol (Vitamin D2) [Drisdol] Meds 05/09/23 09:00 Active 50,000 unit PO WEEKLY Escitalopram Oxalate [Lexapro] Meds 05/06/23 09:00 Active 5 mg PO DAILY Insulin Regular, Human [Humulin R] Meds 05/05/23 16:42 Active See Protocol SUBCUT PRN PRN Ondansetron HCl/Pf [Zofran 4 mg/2 ml] Meds 05/05/23 16:39 Active 4 mg IVP Q6H PRN Sodium Chloride 0.9% [Sodium Chloride] 1,000 ml Meds 05/05/23 17:00 Active IV 100 mls/hr Vancomycin/Water For Inj (Peg) [Vancomycin 1 Gram/200 Meds 05/05/23 21:00 Active ml Premix] 1 gm in 200 ml IV BEDTIME
[2023-05-06] MEDS: TORADOL IVP PRN (13:11)
[2023-05-06] MEDS ORDERED: VANCOMYCIN 750 MG/150 ML BAG 750 MG/150 ML BAG IV SCH (21:30)
[2023-05-07 05:47] LABS: HEMOGLOBIN 11.9 g/dl (12.0-16.0); IMMATURE GRANULOCYTE # (AUTO) 0.1 (0.0-1.0); LYMPHOCYTES # (AUTO) 0.4 K/uL (0.60-3.4); LYMPHOCYTES % (AUTO) 5.4 (10.0-50.0); MEAN CORPUSCULAR HEMOGLOBIN 27.5 pg (27.0-31.0); MEAN CORPUSCULAR HGB CONC 30.5 (31.8-35.4); MEAN CORPUSCULAR VOLUME 90.3 fl (81.0-99.0); MONOCYTES # (AUTO) 0.5 K/uL (0.4-2.0); MONOCYTES % (AUTO) 7.2 (0-10); NEUTROPHILS # (AUTO) 6.3 K/ul (2.0-6.9); NEUTROPHILS % (AUTO) 86.4 % (42.2-75.2); PLATELET COUNT 95 10^3/uL (140-440); RDW COEFFICIENT OF VARIATION 14.1 % (11.6-14.8); RED BLOOD COUNT 4.32 10^6/ul (4.20-5.40)
[2023-05-07 05:51] LABS: ALANINE AMINOTRANSFERASE 37.9 U/L (0-35); ALBUMIN 3.18 g/dL (3.5-5.0); ALKALINE PHOSPHATASE 103.8 U/L (53-141); BILIRUBIN,TOTAL 0.7 mg/dL (0.2-1.3); BLOOD UREA NITROGEN 39.3 mg/dL (7-17); CALCIUM 8.83 mg/dL (8.4-10.2); CARBON DIOXIDE 21.9 mmol/L (22-30.0); CREATININE 0.83 mg/dL (0.60-1.30); GLUCOSE 224.1 mg/dL (74-106); SODIUM 132.3 mmol/L (134.5-145); TOTAL PROTEIN 6.33 g/dL (6.3-8.2)
[2023-05-07 05:53] LABS: CHLORIDE 104.9 mmol/L (98-107)
[2023-05-07 05:56] LABS: WHITE BLOOD COUNT 7.25 K/ul (4.6-10.2)
[2023-05-07 06:15] LABS: POTASSIUM 3.53 mmol/L (3.5-5.1)
[2023-05-07] MEDS: HYDROCORTISONE 1% CREAM TP SCH (08:40)
--- NOTE | 2023-05-07 09:07 | PCM.PROG ---
Date/Time Seen Date Seen by Provider: 05/07/23 Time Seen by Provider: 08:45 Provider [facility] Chief Complaint Chief Complaint: HYPERGLYCEMIA, LEUKOCYTOSIS Subjective Subjective: No events overnight. More alert today. Having trouble communicating. Expressive aphasia noted. On 2.5L O2. Does not wear any normally - removed and maintaining normal O2 sat on RA. Wears CPAP at night. Objective Appearance: Positive No Apparent Distress Chest/Lungs: Positive Symmetrical With Equal Breath Sounds and Clear to Auscultation Bilaterally Heart: Positive RRR and Pulses Normal GI/: Positive Soft, Nontender, Bowel Sounds Normal and No Distention Musculoskeletal: Positive Not Examined Neurological: Positive Sensation Intact, Motor intact, Reflexes Intact, Alert and Other (expressive aphasia) Vital Signs Vital Signs: Vital Signs: Last 24 Hours 05/06/23 09:48 05/06/23 13:00 05/06/23 14:00 Temperature 97.6 F 97.2 F L Temperature Source Tympanic Tympanic Pulse Rate 84 88 Respiratory Rate 18 20 Blood Pressure 124/52 L 117/49 L Blood Pressure Mean 76 71 Blood Pressure Location Left Arm Left Arm Blood Pressure Position Supine Supine O2 Sat by Pulse Oximetry 98 94 L Oxygen Delivery Method Nasal Cannula Nasal Cannula Oxygen Flow Rate 2 2 Telemetry Type Remote Telemetry Telemetry Monitoring Continues Telemetry Heart Rate 91 EKG [place] Interval 0.22 H EKG QRS Interval 0.02 L Telemetry Strip Reading SR 05/06/23 18:00 05/06/23 19:00 05/06/23 20:00 Temperature 97.4 F L Temperature Source Tympanic Pulse Rate 96 Respiratory Rate 26 H 18 Blood Pressure 152/85 H Blood Pressure Mean 107 Blood Pressure Location Right Arm Blood Pressure Position Supine O2 Sat by Pulse Oximetry 97 Oxygen Delivery Method Nasal Cannula Nasal Cannula Oxygen Flow Rate 3 2 Telemetry Type Remote Telemetry Telemetry Monitoring Continues Telemetry Heart Rate 90 EKG [place] Interval 0.18 EKG QRS Interval 0.08 Telemetry Strip Reading SINUS RHYTHM 05/06/23 20:55 05/07/23 01:00 05/07/23 02:00 Temperature 98.7 F 98.3 F Temperature Source Temporal Artery Scan Temporal Artery Scan Pulse Rate 95 98 Respiratory Rate 18 16 Blood Pressure 157/65 H Blood Pressure Mean 95 Blood Pressure Location Left Arm Blood Pressure Position Supine O2 Sat by Pulse Oximetry 100 Oxygen Delivery Method Nasal Cannula C-pap Oxygen Flow Rate 3 Telemetry Type Remote Telemetry Telemetry Monitoring Continues Telemetry Heart Rate 102 H EKG [place] Interval 0.15 EKG QRS Interval 0.07 Telemetry Strip Reading SINUS TACHYCARDIA 05/07/23 05:02 05/07/23 07:00 05/07/23 07:46 Temperature 98.7 F Temperature Source Temporal Artery Scan Pulse Rate 107 H Respiratory Rate 16 Blood Pressure 177/80 H Blood Pressure Mean 112 Blood Pressure Location Left Arm Blood Pressure Position Supine O2 Sat by Pulse Oximetry 94 L Oxygen Delivery Method Nasal Cannula Nasal Cannula Oxygen Flow Rate 2 2.5 Telemetry Type Remote Telemetry Telemetry Monitoring Continues Telemetry Heart Rate 90 EKG [place] Interval 0.19 EKG QRS Interval 0.06 Telemetry Strip Reading SA w/ PVC Lab Results Lab Results: Lab Results: Last 24 Hours 05/07/23 05:15 WBC 7.25 D RBC 4.32 Hgb 11.9 L Hct 39.0 MCV 90.3 MCH 27.5 MCHC 30.5 L RDW Coeff of [place] 14.1 Plt Count 95 L Immature Gran % (Auto) 1.0 Neut % (Auto) 86.4 H Lymph % (Auto) 5.4 L [place] % (Auto) 7.2 Eos % (Auto) 0.0 Baso % (Auto) 0.0 Neut # (Auto) 6.3 Lymph # (Auto) 0.4 L [place] # (Auto) 0.5 Eos # (Auto) 0.0 Baso # (Auto) 0.0 Immature Gran # (Auto) 0.1 Sodium 132.3 L Potassium 3.53 Chloride 104.9 Carbon Dioxide 21.9 L Anion Gap 9.03 BUN 39.3 H Creatinine 0.83 Estimated GFR (MDRD) 65.00 BUN/Creatinine Ratio 47.34 Glucose 224.1 H D Calcium 8.83 Total Bilirubin 0.70 AST 49.0 H ALT 37.9 H Alkaline Phosphatase 103.8 D Total Protein 6.33 Albumin 3.18 L Globulin 3.15 Albumin/Globulin Ratio 1.00 Procalcitonin 4.95 H Additional Comments Additional Comments: I have independently reviewed and interpreted the labs/EKGs/imaging ordered during this hospital stay. I have reviewed outside records that are available in our EMR that pertain to medical stay including imaging/notes/labs from previous visits. Active Medications Active Medications: Medications Generic Name Dose Route Start Last Admin Trade Name Fortinoq PRN Reason Stop Dose Admin Acetaminophen 650 mg 05/05/23 16:39 05/06/23 10:02 Acetaminophen 325 Mg Tablet PO 650 mg Q4H PRN Administration Mild Pain Ergocalciferol 50,000 unit 05/09/23 09:00 Ergocalciferol (Vitamin D2) 50,000 Unit Capsule PO WEEKLY LUIZA Escitalopram Oxalate 5 mg 05/06/23 09:00 05/07/23 08:41 Escitalopram Oxalate 10 Mg Tablet PO 5 mg DAILY LUIZA Administration Hydrocortisone 1 applic 05/07/23 09:00 05/07/23 08:40 Hydrocortisone 28 Gm Cream TP 1 applic DAILY LUIZA Administration Sodium Chloride 1,000 mls @ 100 mls/hr 05/05/23 17:00 05/07/23 01:28 Sodium Chloride IV 100 mls/hr .Q10H LUIZA Administration VANCOMYCIN/WATER FOR INJ (PEG) 1 gm in 200 mls @ 200 mls/hr 05/05/23 21:00 05/06/23 20:29 Vancomycin 1 Gram/200 Ml Premix IV 05/08/23 22:00 200 mls/hr BEDTIME LUIZA Administration CEFEPIME 2 GM/D5W 2 gm in 50 mls @ 100 mls/hr 05/05/23 21:00 05/07/23 08:42 Maxipime 2 Gm/50 Ml D5w IV 05/08/23 20:59 100 mls/hr Q12HR LUIZA Administration Insulin Human Regular 0 unit 05/05/23 16:42 05/07/23 06:15 Insulin Regular, Human 100 Unit/Ml (10ml) Vial SUBCUT 5 unit PRN PRN Administration Hyperglycemia Protocol Ketorolac Tromethamine 15 mg 05/06/23 12:41 05/06/23 13:11 Ketorolac Tromethamine 15 Mg/Ml Vial IVP 05/10/23 12:41 15 mg Q6HR PRN Administration Pain Ondansetron HCl 4 mg 05/05/23 16:39 Ondansetron Hcl/Pf 4 Mg/2 Ml Sdv IVP Q6H PRN Nausea / Vomiting Plan Plan: 1. Sepsis - blood cultures showing growth of gram + cocci, will repeat when C&S complete; cefepime and vanc ordered, all imaging negative, unknown source at this time, procal trending down, WBC count trended down 2. Hyponatremia - Improving, up to 132 this am, NS@100mL/hr, repeat cmp in am 3. Thrombocytopenia - secondary to #1, monitor 4. Diabetes, type 2 - ada diet, accuchecks qid with ssi, hold oral agents, A1c 8 5. Lung nodules - concern for cancer, discussed options with patient, does not wish for intervention 6. LAITH - CPAP or oxygen 7. Vaginitis - treating with hydrocortizone to affected area 8. CVA/TIA - NIH 4 due to expressive aphasia, CT head negative on admission, initially confused/lethargic, checking lipid panel, will discuss with family goals of care and preventative options from this point forward DVT Prophylaxis: Holding due to thrombocytopenia, kelsie schafer Review Statement Review Statement: I have personally discussed and reviewed the patient's visit/currently labs/imaging/decision making with Dr. Garcia, my supervising attending. Greater that 50 minutes spent with patient, 50% of the time spent with this patient was devoted to counseling and coordination of care.
[2023-05-07 11:11] LABS: BILIRUBIN,URINE Negative (NEGATIVE); CLARITY,URINE Clear (CLEAR); COLOR,URINE Yellow (YELLOW); KETONES,URINE Trace (NEGATIVE); LEUKOCYTE ESTERASE ,URINE Negative (NEGATIVE); NITRITE,URINE Negative (NEGATIVE); PROTEIN,URINE 1+ (NEGATIVE); URINE, BLOOD 1+ (NEGATIVE); UROBILINOGEN,URINE 0.2 (0.2)
[2023-05-07 11:12] LABS: GLUCOSE, URINE (UA) 3+ (NEGATIVE)
[2023-05-07] MEDS: NORVASC PO SCH (11:38)
[2023-05-07] MEDS: HUMULIN R SUBCUT PRN (12:13)
[2023-05-07 12:52] LABS: CHOLESTEROL 140.6 mg/dL (0-200); HDL CHOLESTEROL 35.7 mg/dL (35-80); TRIGLYCERIDES 165.3 mg/dL (0-150)
[2023-05-07] MEDS: LIPITOR PO SCH (20:42)
[2023-05-08 05:48] LABS: BASOPHILS % (AUTO) 0.1 % (0.0-3.0); EOSINOPHILS # (AUTO) 0.1 K/ul (0.0-0.7); EOSINOPHILS % (AUTO) 0.7 % (0.0-7.0); HEMATOCRIT 36.1 % (37.0-47.0); HEMOGLOBIN 11.2 g/dl (12.0-16.0); IMMATURE GRANULOCYTE % (AUTO) 0.6 % (0.0-5.0); LYMPHOCYTES # (AUTO) 0.5 K/uL (0.60-3.4); LYMPHOCYTES % (AUTO) 7.6 (10.0-50.0); MEAN CORPUSCULAR HEMOGLOBIN 28.1 pg (27.0-31.0); MEAN CORPUSCULAR VOLUME 90.5 fl (81.0-99.0); MONOCYTES # (AUTO) 0.8 K/uL (0.4-2.0); MONOCYTES % (AUTO) 12.5 (0-10); NEUTROPHILS # (AUTO) 5.3 K/ul (2.0-6.9); NEUTROPHILS % (AUTO) 78.5 % (42.2-75.2); PLATELET COUNT 104 10^3/uL (140-440); RDW COEFFICIENT OF VARIATION 14.3 % (11.6-14.8); RED BLOOD COUNT 3.99 10^6/ul (4.20-5.40); WHITE BLOOD COUNT 6.71 K/ul (4.6-10.2)
[2023-05-08 05:54] LABS: ALANINE AMINOTRANSFERASE 67.1 U/L (0-35); ALBUMIN 2.97 g/dL (3.5-5.0); ALKALINE PHOSPHATASE 106.9 U/L (53-141); ASPARTATE AMINO TRANSFERASE 62.2 U/L (14-36); BILIRUBIN,TOTAL 0.83 mg/dL (0.2-1.3); BLOOD UREA NITROGEN 29.2 mg/dL (7-17); CALCIUM 8.73 mg/dL (8.4-10.2); CARBON DIOXIDE 23.1 mmol/L (22-30.0); CHLORIDE 108.8 mmol/L (98-107); CREATININE 0.7 mg/dL (0.60-1.30); GLUCOSE 214.9 mg/dL (74-106); POTASSIUM 3.3 mmol/L (3.5-5.1); SODIUM 135.7 mmol/L (134.5-145); TOTAL PROTEIN 6.19 g/dL (6.3-8.2)
--- NOTE | 2023-05-08 08:33 | PCM.PROG ---
Date/Time Seen Date Seen by Provider: 05/08/23 Time Seen by Provider: 08:25 Provider Provider: MERYL BHARDAWJ, [facility] Chief Complaint Chief Complaint: HYPERGLYCEMIA, LEUKOCYTOSIS Subjective Subjective: No events overnight. Oriented x 3 with expressive aphasia present. Ambulating in room well. Had difficulty brushing teeth with R hand this morning per nursing staff. Objective Appearance: Positive No Apparent Distress and Alert and Oriented x3 Chest/Lungs: Positive Symmetrical With Equal Breath Sounds and Clear to Auscultation Bilaterally Heart: Positive RRR and Pulses Normal GI/: Positive Soft, Nontender, Bowel Sounds Normal, No Distention and No Organomegaly Musculoskeletal: Positive Not Examined Neurological: Positive Sensation Intact, Motor intact, Reflexes Intact, Alert, Oriented and Other (expressive aphasia) Vital Signs Vital Signs: Vital Signs: Last 24 Hours 05/07/23 10:00 05/07/23 13:00 05/07/23 14:00 Temperature 97.4 F L 97 F L Temperature Source Tympanic Temporal Artery Scan Pulse Rate 100 87 Pulse Rate [Apical] Respiratory Rate 24 H 24 H Blood Pressure 194/92 H 127/66 Blood Pressure Mean 126 86 Blood Pressure Location Right Arm Right Arm Blood Pressure Position Supine Supine O2 Sat by Pulse Oximetry 97 94 L Oxygen Delivery Method Nasal Cannula Nasal Cannula Oxygen Flow Rate 2 2 Height Weight Telemetry Type Remote Telemetry Telemetry Monitoring Continues Telemetry Heart Rate 91 EKG [place] Interval 0.17 EKG QRS Interval 0.06 Telemetry Strip Reading sr 05/07/23 14:00 05/07/23 17:59 05/07/23 18:54 Temperature 97.8 F Temperature Source Temporal Artery Scan Pulse Rate 85 Pulse Rate [Apical] Respiratory Rate 18 Blood Pressure 152/76 H Blood Pressure Mean 101 Blood Pressure Location Right Arm Blood Pressure Position Supine O2 Sat by Pulse Oximetry 95 94 L Oxygen Delivery Method Room Air Room Air Room Air Oxygen Flow Rate Height Weight Telemetry Type Telemetry Monitoring Telemetry Heart Rate EKG [place] Interval EKG QRS Interval Telemetry Strip Reading 05/07/23 19:00 05/07/23 19:59 05/07/23 20:00 Temperature Temperature Source Pulse Rate Pulse Rate [Apical] 74 Respiratory Rate 16 Blood Pressure Blood Pressure Mean Blood Pressure Location Blood Pressure Position O2 Sat by Pulse Oximetry Oxygen Delivery Method C-pap Oxygen Flow Rate Height 5 ft 5 in Weight 151 lb 12.8 oz Telemetry Type Remote Telemetry Telemetry Monitoring Continues Telemetry Heart Rate 85 EKG [place] Interval 0.14 EKG QRS Interval 0.07 Telemetry Strip Reading SR 05/07/23 20:52 05/08/23 01:00 05/08/23 02:00 Temperature 97.6 F 97.6 F Temperature Source Temporal Artery Scan Temporal Artery Scan Pulse Rate 78 84 Pulse Rate [Apical] Respiratory Rate 18 17 Blood Pressure 148/76 H Blood Pressure Mean 100 Blood Pressure Location Left Arm Blood Pressure Position Supine O2 Sat by Pulse Oximetry 95 95 Oxygen Delivery Method Room Air C-pap Oxygen Flow Rate Height Weight Telemetry Type Remote Telemetry Telemetry Monitoring Continues Telemetry Heart Rate 69 EKG [place] Interval 0.19 EKG QRS Interval 0.10 Telemetry Strip Reading SR 05/08/23 05:18 05/08/23 06:00 05/08/23 06:52 Temperature 98.4 F Temperature Source Temporal Artery Scan Pulse Rate 88 Pulse Rate [Apical] Respiratory Rate 21 H Blood Pressure 174/79 H Blood Pressure Mean 110 Blood Pressure Location Left Arm Blood Pressure Position Supine O2 Sat by Pulse Oximetry 97 Oxygen Delivery Method Room Air Room Air Oxygen Flow Rate Height Weight Telemetry Type Remote Telemetry Telemetry Monitoring Continues Telemetry Heart Rate 84 EKG [place] Interval 0.16 EKG QRS Interval 0.08 Telemetry Strip Reading NSR Lab Results Lab Results: Lab Results: Last 24 Hours 05/08/23 05/07/23 05/07/23 05:34 10:52 09:31 WBC 6.71 RBC 3.99 L Hgb 11.2 L Hct 36.1 L MCV 90.5 MCH 28.1 MCHC 31.0 L RDW Coeff of Juan Antonio 14.3 Plt Count 104 L Immature Gran % (Auto) 0.6 Neut % (Auto) 78.5 H Lymph % (Auto) 7.6 L [place] % (Auto) 12.5 H Eos % (Auto) 0.7 Baso % (Auto) 0.1 Neut # (Auto) 5.3 Lymph # (Auto) 0.5 L [place] # (Auto) 0.8 Eos # (Auto) 0.1 Baso # (Auto) 0.0 Immature Gran # (Auto) 0.0 Sodium 135.7 Potassium 3.30 L Chloride 108.8 H Carbon Dioxide 23.1 Anion Gap 7.10 BUN 29.2 H Creatinine 0.70 Estimated GFR (MDRD) 79.00 BUN/Creatinine Ratio 41.71 Glucose 214.9 H Calcium 8.73 Total Bilirubin 0.83 AST 62.2 H ALT 67.1 H Alkaline Phosphatase 106.9 Ammonia 9.9 Total Protein 6.19 L Albumin 2.97 L Globulin 3.22 Albumin/Globulin Ratio 0.92 Triglycerides Cholesterol LDL Cholesterol, Calc VLDL Cholesterol HDL Cholesterol Cholesterol/HDL Ratio Procalcitonin 2.62 H Urine Color Yellow Urine Clarity Clear Urine pH 6.0 Ur Specific [place] 1.015 Urine Protein 1+ H Urine Glucose (UA) 3+ H Urine Ketones Trace H Urine Blood 1+ H Urine Nitrite Negative Urine Bilirubin Negative Urine Urobilinogen 0.2 Ur Leukocyte Esterase Negative Urine Microscopic RBC 2-5 Ur Squamous Epith Cells 2-5 05/07/23 05:15 WBC RBC Hgb Hct MCV MCH MCHC RDW Coeff of Juan Antonio Plt Count Immature Gran % (Auto) Neut % (Auto) Lymph % (Auto) [place] % (Auto) Eos % (Auto) Baso % (Auto) Neut # (Auto) Lymph # (Auto) [place] # (Auto) Eos # (Auto) Baso # (Auto) Immature Gran # (Auto) Sodium Potassium Chloride Carbon Dioxide Anion Gap BUN Creatinine Estimated GFR (MDRD) BUN/Creatinine Ratio Glucose Calcium Total Bilirubin AST ALT Alkaline Phosphatase Ammonia Total Protein Albumin Globulin Albumin/Globulin Ratio Triglycerides 165.3 H Cholesterol 140.6 LDL Cholesterol, Calc 72 VLDL Cholesterol 33 H HDL Cholesterol 35.7 Cholesterol/HDL Ratio 3.9 L Procalcitonin Urine Color Urine Clarity Urine pH Ur Specific [place] Urine Protein Urine Glucose (UA) Urine Ketones Urine Blood Urine Nitrite Urine Bilirubin Urine Urobilinogen Ur Leukocyte Esterase Urine Microscopic RBC Ur Squamous Epith Cells Additional Comments Additional Comments: I have independently reviewed and interpreted the labs/EKGs/imaging ordered during this hospital stay. I have reviewed outside records that are available in our EMR that pertain to medical stay including imaging/notes/labs from previous visits. Active Medications Active Medications: Medications Generic Name Dose Route Start Last Admin Trade Name Freq PRN Reason Stop Dose Admin Acetaminophen 650 mg 05/05/23 16:39 05/07/23 17:11 Acetaminophen 325 Mg Tablet PO 650 mg Q4H PRN Administration Mild Pain Amlodipine Besylate 5 mg 05/07/23 11:30 05/07/23 11:38 Amlodipine Besylate 5 Mg Tablet PO 5 mg DAILY LUIZA Administration Aspirin 81 mg 05/08/23 07:30 Aspirin 81 Mg Tab.Chew PO DAILYWM2 LUIZA Atorvastatin Calcium 40 mg 05/07/23 21:00 05/07/23 20:42 Atorvastatin Calcium 20 Mg Tablet PO 40 mg BEDTIME LUIZA Administration Ergocalciferol 50,000 unit 05/09/23 09:00 Ergocalciferol (Vitamin D2) 50,000 Unit Capsule PO WEEKLY LUIZA Escitalopram Oxalate 5 mg 05/06/23 09:00 05/07/23 08:41 Escitalopram Oxalate 10 Mg Tablet PO 5 mg DAILY LUIZA Administration Hydrocortisone 1 applic 05/07/23 09:00 05/07/23 08:40 Hydrocortisone 28 Gm Cream TP 1 applic DAILY LUIZA Administration Cefazolin Sodium/Dextrose 2 gm in 100 mls @ 150 mls/hr 05/08/23 13:00 Ancef 1 Gm/50 Ml D5w IV 05/11/23 12:59 Q8HR LUIZA Insulin Human Regular 0 unit 05/07/23 12:09 05/08/23 06:11 Insulin Regular, Human 100 Unit/Ml (10ml) Vial SUBCUT 6 unit PRN PRN Administration Hyperglycemia Protocol Ketorolac Tromethamine 15 mg 05/06/23 12:41 05/08/23 06:06 Ketorolac Tromethamine 15 Mg/Ml Vial IVP 05/10/23 12:41 15 mg Q6HR PRN Administration Pain Ondansetron HCl 4 mg 05/05/23 16:39 Ondansetron Hcl/Pf 4 Mg/2 Ml Sdv IVP Q6H PRN Nausea / Vomiting Plan Plan: 1. Sepsis - blood cultures positive for staph aureus, switching to ancef per pharmacy, repeat cultures drawn yesterday, procal trending down, WBC count trended down 2. Hyponatremia - Resolved 3. Thrombocytopenia - Improving, secondary to #1, monitor 4. Diabetes, type 2 - ada diet, accuchecks qid with ssi, hold oral agents, A1c 8 5. Lung nodules - concern for cancer, discussed options with patient, does not wish for intervention 6. LAITH - CPAP or oxygen 7. Vaginitis - treating with hydrocortizone to affected area 8. CVA/TIA - continues to have expressive aphasia, started on asa and atorvastatin, family does not want patient on blood thinners due to age - discussed risks vs benefit, will need PT/OT/ST on d/c 9. Transaminitis - likely reactive due to #1, monitor DVT Prophylaxis: Holding due to thrombocytopenia, kelsie schafer Review Statement Review Statement: I have personally discussed and reviewed the patient's visit/currently labs/imaging/decision making with Dr. Garcia, my supervising attending. Greater that 50 minutes spent with patient, 50% of the time spent with this patient was devoted to counseling and coordination of care.
[2023-05-08] MEDS: K-DUR PO ONE (08:39)
[2023-05-08] MEDS: ASPIRIN CHEWABLE PO SCH (08:39)
[2023-05-08] MEDS: ANCEF 1 GM/50 ML D5W 2 GM/100 ML BAG IV SCH (12:52)
[2023-05-09 05:33] LABS: BASOPHILS % (AUTO) 0.1 % (0.0-3.0); EOSINOPHILS # (AUTO) 0.1 K/ul (0.0-0.7); EOSINOPHILS % (AUTO) 1.3 % (0.0-7.0); HEMATOCRIT 36.8 % (37.0-47.0); HEMOGLOBIN 11.6 g/dl (12.0-16.0); IMMATURE GRANULOCYTE # (AUTO) 0.1 (0.0-1.0); IMMATURE GRANULOCYTE % (AUTO) 1.1 % (0.0-5.0); LYMPHOCYTES # (AUTO) 0.8 K/uL (0.60-3.4); MEAN CORPUSCULAR HEMOGLOBIN 28.2 pg (27.0-31.0); MEAN CORPUSCULAR HGB CONC 31.5 (31.8-35.4); MEAN CORPUSCULAR VOLUME 89.5 fl (81.0-99.0); MONOCYTES % (AUTO) 14.3 (0-10); NEUTROPHILS # (AUTO) 5.2 K/ul (2.0-6.9); NEUTROPHILS % (AUTO) 72.2 % (42.2-75.2); PLATELET COUNT 117 10^3/uL (140-440); RDW COEFFICIENT OF VARIATION 14.3 % (11.6-14.8); RED BLOOD COUNT 4.11 10^6/ul (4.20-5.40); WHITE BLOOD COUNT 7.15 K/ul (4.6-10.2)
[2023-05-09 05:45] LABS: ALANINE AMINOTRANSFERASE 93.9 U/L (0-35); ALBUMIN 2.93 g/dL (3.5-5.0); ALKALINE PHOSPHATASE 153.1 U/L (53-141); ASPARTATE AMINO TRANSFERASE 91.2 U/L (14-36); BILIRUBIN,TOTAL 0.78 mg/dL (0.2-1.3); BLOOD UREA NITROGEN 21.2 mg/dL (7-17); CALCIUM 8.79 mg/dL (8.4-10.2); CARBON DIOXIDE 29.4 mmol/L (22-30.0); CHLORIDE 106.3 mmol/L (98-107); CREATININE 0.59 mg/dL (0.60-1.30); GLUCOSE 197.7 mg/dL (74-106); POTASSIUM 3.34 mmol/L (3.5-5.1); SODIUM 135.8 mmol/L (134.5-145); TOTAL PROTEIN 6.01 g/dL (6.3-8.2)
[2023-05-09] MEDS: MIRALAX PO SCH (08:18)
[2023-05-09] MEDS: DRISDOL PO SCH (08:22)
[2023-05-09] MEDS: K-DUR PO ONE (09:38)
--- NOTE | 2023-05-09 11:01 | PCM.PROG ---
Date/Time Seen Date Seen by Provider: 05/09/23 Time Seen by Provider: 08:40 Provider Provider: [facility] Chief Complaint Chief Complaint: HYPERGLYCEMIA, LEUKOCYTOSIS Subjective Subjective: Patient is feeling better, just "feels sore all over". Discussed being treated for an infection but unclear source. Also discussed her expressive aphasia over the weekend, she feels this has improved greatly. Discussed ordering an MRI of the brain to further evaluate and look for a CVA, she declines at this time. She is ok with taking a baby aspirin. She was hopeful to go home today. Discussed her being weak and living alone. She states her sister plans to stay with her. Awaiting therapy eval. Objective Appearance: Positive No Apparent Distress and Alert and Oriented x3 Chest/Lungs: Positive Symmetrical With Equal Breath Sounds and Clear to A uscultation Bilaterally Heart: Positive RRR and Pulses Normal GI/: Positive Soft, Nontender, Bowel Sounds Normal, No Distention and No Organomegaly Neurological: Positive Sensation Intact, Motor intact, Reflexes Intact, Cranial Nerves Intact, Alert, Oriented and Other (expressive aphasia, improved ) Additional Findings: +romberg negative. Follows commands. Facial expressions symmetrical. Infectious Waste Technician strength equal. Vital Signs Vital Signs: Vital Signs: Last 24 Hours 05/08/23 13:00 05/08/23 14:00 05/08/23 14:00 Temperature 97.5 F L Temperature Source Tympanic Pulse Rate 89 Pulse Rate [Apical] Respiratory Rate 20 Blood Pressure 166/75 H Blood Pressure Mean 105 Blood Pressure Location Right Arm Blood Pressure Position Sitting O2 Sat by Pulse Oximetry 94 L 96 Oxygen Delivery Method Room Air Room Air Oxygen Flow Rate Telemetry Type Remote Telemetry Telemetry Monitoring Continues Telemetry Heart Rate 86 EKG DE Interval EKG QRS Interval Telemetry Strip Reading SR 05/08/23 17:07 05/08/23 19:00 05/08/23 19:53 Temperature 97.4 F L Temperature Source Tympanic Pulse Rate 75 Pulse Rate [Apical] Respiratory Rate 20 Blood Pressure 154/72 H Blood Pressure Mean 99 Blood Pressure Location Right Arm Blood Pressure Position Supine O2 Sat by Pulse Oximetry 93 L 96 Oxygen Delivery Method Room Air Room Air Oxygen Flow Rate Telemetry Type Remote Telemetry Telemetry Monitoring Continues Telemetry Heart Rate 87 EKG DE Interval 0.18 EKG QRS Interval 0.10 Telemetry Strip Reading SR 05/08/23 20:00 05/08/23 21:04 05/09/23 01:00 Temperature 97.8 F Temperature Source Temporal Artery Scan Pulse Rate 96 Pulse Rate [Apical] Respiratory Rate 16 22 H Blood Pressure 178/84 H Blood Pressure Mean 115 Blood Pressure Location Left Arm Blood Pressure Position Supine O2 Sat by Pulse Oximetry 97 Oxygen Delivery Method C-pap Room Air Oxygen Flow Rate Telemetry Type Remote Telemetry Telemetry Monitoring Continues Telemetry Heart Rate 81 EKG DE Interval 0.14 EKG QRS Interval 0.06 Telemetry Strip Reading sinus rhythm 05/09/23 02:00 05/09/23 06:00 05/09/23 06:00 Temperature 97.4 F L Temperature Source Temporal Artery Scan Pulse Rate 68 92 Pulse Rate [Apical] Respiratory Rate 16 16 Blood Pressure Blood Pressure Mean Blood Pressure Location Blood Pressure Position O2 Sat by Pulse Oximetry 94 L Oxygen Delivery Method C-pap C-pap Room Air Oxygen Flow Rate Telemetry Type Telemetry Monitoring Telemetry Heart Rate EKG DE Interval EKG QRS Interval Telemetry Strip Reading 05/09/23 07:00 05/09/23 08:00 05/09/23 10:00 Temperature 97 F L Temperature Source Temporal Artery Scan Pulse Rate 91 Pulse Rate [Apical] 82 Respiratory Rate 20 18 Blood Pressure 172/68 H Blood Pressure Mean 102 Blood Pressure Location Left Arm Blood Pressure Position Sitting O2 Sat by Pulse Oximetry 98 Oxygen Delivery Method Nasal Cannula Room Air Oxygen Flow Rate 2 Telemetry Type Bedside Monitor Telemetry Monitoring Continues Telemetry Heart Rate 82 EKG DE Interval 0.28 H EKG QRS Interval 0.16 H Telemetry Strip Reading Sinus rhythm 1st Degree AVB and BBB 05/09/23 10:00 Temperature Temperature Source Pulse Rate Pulse Rate [Apical] Respiratory Rate Blood Pressure Blood Pressure Mean Blood Pressure Location Blood Pressure Position O2 Sat by Pulse Oximetry 98 Oxygen Delivery Method Nasal Cannula Oxygen Flow Rate 2 Telemetry Type Telemetry Monitoring Telemetry Heart Rate EKG DE Interval EKG QRS Interval Telemetry Strip Reading Lab Results Lab Results: Lab Results: Last 24 Hours 05/09/23 05:13 WBC 7.15 RBC 4.11 L Hgb 11.6 L Hct 36.8 L MCV 89.5 MCH 28.2 MCHC 31.5 L RDW Coeff of Juan Antonio 14.3 Plt Count 117 L Immature Gran % (Auto) 1.1 Neut % (Auto) 72.2 Lymph % (Auto) 11.0 [place] % (Auto) 14.3 H Eos % (Auto) 1.3 Baso % (Auto) 0.1 Neut # (Auto) 5.2 Lymph # (Auto) 0.8 [place] # (Auto) 1.0 Eos # (Auto) 0.1 Baso # (Auto) 0.0 Immature Gran # (Auto) 0.1 Sodium 135.8 Potassium 3.34 L Chloride 106.3 Carbon Dioxide 29.4 Anion Gap 3.44 BUN 21.2 H Creatinine 0.59 L Estimated GFR (MDRD) 96.00 BUN/Creatinine Ratio 35.93 Glucose 197.7 H Calcium 8.79 Total Bilirubin 0.78 AST 91.2 H D ALT 93.9 H Alkaline Phosphatase 153.1 H D Total Protein 6.01 L Albumin 2.93 L Globulin 3.08 Albumin/Globulin Ratio 0.95 Procalcitonin 1.30 H Additional Comments Additional Comments: I have independently reviewed and interpreted the labs/EKGs/imaging ordered during this hospital stay. I have reviewed outside records that are available in our EMR that pertain to medical stay including imaging/notes/labs from previous visits. Active Medications Active Medications: Medications Generic Name Dose Route Start Last Admin Trade Name Freq PRN Reason Stop Dose Admin Acetaminophen 650 mg 05/05/23 16:39 05/08/23 11:58 Acetaminophen 325 Mg Tablet PO 650 mg Q4H PRN Administration Mild Pain Amlodipine Besylate 5 mg 05/07/23 11:30 05/09/23 08:19 Amlodipine Besylate 5 Mg Tablet PO 5 mg DAILY LUIZA Administration Aspirin 81 mg 05/08/23 07:30 05/09/23 08:19 Aspirin 81 Mg Tab.Chew PO 81 mg DAILYWM2 LUIZA Administration Atorvastatin Calcium 40 mg 05/07/23 21:00 05/08/23 21:09 Atorvastatin Calcium 20 Mg Tablet PO 40 mg BEDTIME LUIZA Administration Ergocalciferol 50,000 unit 05/09/23 09:00 05/09/23 08:22 Ergocalciferol (Vitamin D2) 50,000 Unit Capsule PO 50,000 unit WEEKLY LUIZA Administration Escitalopram Oxalate 5 mg 05/06/23 09:00 05/09/23 08:19 Escitalopram Oxalate 10 Mg Tablet PO 5 mg DAILY LUIZA Administration Hydrocortisone 1 applic 05/07/23 09:00 05/09/23 08:20 Hydrocortisone 28 Gm Cream TP 1 applic DAILY LUIZA Administration Cefazolin Sodium/Dextrose 2 gm in 100 mls @ 150 mls/hr 05/08/23 13:00 05/09/23 06:11 Ancef 1 Gm/50 Ml D5w IV 05/11/23 12:59 150 mls/hr Q8HR LUIZA Administration Insulin Human Regular 0 unit 05/07/23 12:09 05/09/23 06:25 Insulin Regular, Human 100 Unit/Ml (10ml) Vial SUBCUT 4 unit PRN PRN Administration Hyperglycemia Protocol Ketorolac Tromethamine 15 mg 05/06/23 12:41 05/09/23 06:11 Ketorolac Tromethamine 15 Mg/Ml Vial IVP 05/10/23 12:41 15 mg Q6HR PRN Administration Pain Ondansetron HCl 4 mg 05/05/23 16:39 Ondansetron Hcl/Pf 4 Mg/2 Ml Sdv IVP Q6H PRN Nausea / Vomiting Polyethylene Glycol 17 gm 05/09/23 09:00 05/09/23 08:18 Polyethylene Glycol 17 Gm Powd.Pack PO 17 gm DAILY LUIZA Administration Plan Plan: 1. Bacteremia due to staph aureus - Unclear source. Blood cultures positive for staph aureus, switched to ancef per pharmacy, repeat cultures negative so far, procal trending down, WBC count trended down. Pt improving clinically. 2. Hyponatremia - Resolved 3. Thrombocytopenia - Improving, secondary to #1, monitor 4. Diabetes, type 2 - ada diet, accuchecks qid with ssi, hold oral agents, A1c 8 5. Lung nodules - Noted on CTA. Discussed options with patient, does not wish for intervention 6. LAITH - CPAP or oxygen 7. Vaginitis - treating with hydrocortisone to affected area 8. Expressive aphasia - continues to have expressive aphasia though much improved, started on asa and atorvastatin, family does not want patient on blood thinners due to age - discussed risks vs benefit, will need PT/OT/ST on d/c. Pt declines MRI brain today to further evaluate. 9. Transaminitis - likely reactive due to #1, monitor, especially with starting statin. DVT Prophylaxis: Holding due to thrombocytopenia, kelsie schafer Dispo: Awaiting PT eval, would be a good potential swingbed candidate if the patient wishes. Review Statement Review Statement: I have personally discussed and reviewed the patient's visit/currently labs/imaging/decision making with Dr. Garcia, my supervising attending. Greater that 50 minutes spent with patient, 50% of the time spent with this patient was devoted to counseling and coordination of care.
[2023-05-09] MEDS: AMARYL PO SCH (11:43)
--- NOTE | 2023-05-09 11:49 | RS.PTINEVL ---
Subjective Patient information Date of Evaluation: 05/09/23 Date of Arrival on Unit: 05/05/23 Admitted From:: Home Diagnosis: sepsis, hyponatremia,lung nodules Usual Living Arrangement: Alone Living Arrangement Comments: son visits frequently, sister is also supportive Home Environment: House, Stairs (few) and Rail Medical History: Diabetes and Arthritis Medical History Comments:: Crohn's disease, anxiety, [place] LATEX ALLERGY?: No Medications: see chart Subjective Information/ Patient Comments:: pt states that she started feeling bad last week. pt reports that she and her family have looked into assisted living. They have spoken with Ashley martinez and are considering that in the future. pt states that she hurts "all over" however states that her neck and back are the worst. pt is agreeable to PT. 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 Current Level of Function: Partially Dependent Current Equipment Used at Home: cpap, wheelchair, cane, rolling walker Pain Assessement Location Neck: Description: Sharp and Aching Pain Behavior: Moaning, Rubbing Site and Facial Grimacing Pain Aggravating Factors: Changing Position and Exercise/Activity Pain Alleviating Factors: Medication Back: Description: Sharp and Aching Pain Behavior: Moaning, Guarding and Facial Grimacing Pain Aggravating Factors: Changing Position, Standing and Sitting Pain Alleviating Factors: Medication Interventions Objective Patient Orientation: Person, Place and Situation Observation: pt is very [place] Range of Motion ROM Right Upper Extremity AROM: WFL's Left Upper Extremity AROM: WFL's Right Lower Extremity AROM: WFL's Left Lower Extremity AROM: WFL's Muscle Strength Muscle Strength Right Upper Extremity: Mild Weakness (grossly 4/5 ) Left Upper Extremity: Mild Weakness (grossly 4/5 ) Right Lower Extremity: Mild Weakness (hip flex 4-/5, knee flex 4/5, ext 4-/5, ankle DF/PF 4/5 ) Left Lower Extremity: Mild Weakness (hip flex 4-/5, knee flex 4/5, ext 4-/5, ankle DF/PF 4/5 ) Sensation Sensation Right Upper Extremity: Intact/Normal Left Upper Extremity: Intact/Normal Right Lower Extremity: Intact/Normal Left Lower Extremity: Intact/Normal Palpation Palpation Findings: Tenderness (cervical and lumbar area ) Balance Sitting Balance and Reactions Static Sitting Balance: Good Dynamic Sitting Balance: Fair Standing Balance and Reactions Static Standing Balance: Poor Dynamic Standing Balance: Poor Standing Equilibrium Reactions: Delayed Left and Delayed Right Standing Protective Reactions: Delayed Left and Delayed Right Functional Mobility Bed Mobility Rolling R/L: CGA Supine to Sit: Min Assist and 1 person assist Sit to Supine: Min Assist and 1 person assist Transfers Sit to Stand: CGA, Min Assist and 1 person assist Stand to Sit: CGA Comments:: CGA from bed, min x 1 from low toilet Safety Awareness Safety Awareness: Fair NHAN INDEX SCORE: n/a Ambulation Ambulation Assistive Device Used: Rolling Walker Orthotic/Prosthetic Device: No Distance: 35ft Assistance needed with Ambulation: CGA Gait Deviations: Narrow Based gait, Forward posture, Short stride and Deviates from path (using swivel wheeled walker will try rwx without swivel wheels.) Factors Affecting Ambulation: Decreased Balance, Pain, Weakness, Decreased Coordination, Decreased Safety and Limited Endurance Treatment time Units charged Gait trainin Time with patient Length of Evaluation: 18 Total treatment time: 29 Patient Education Education Patient Education: Activity Modification and Education of Plan of Care Teaching Recipient: Patient Teaching Methods: Discussion Comments: discussion regarding POC Assessment Assessment Problem List:: Decreased level of function, Requires training/education, Decreased safety/Risk of falls, Weakness and Pain limits previous level of function Rehab Potential: Good Further Therapy Indicated?: Yes Candidate for Swing Bed for Therapy Services?: Feel pt may be a candidate for swing bed for therapy to improve functional mobility. Feel pt may only need short term Evaluation Complexity: HISTORY: Medium, EXAM OF BODY SYSTEMS: Medium, CLINICAL PRESENTATION: Medium and CLINICAL DECISION MAKING: Medium Patient's Goal(s): Be able to go home with my sisters help. Short Term Goals GOAL #1: pt demonstrate rolling and scooting in bed independently. Goal to be met by: 05/12/23 GOAL #2: Transfer sup to/from sit CGA Goal to be met by: 05/12/23 GOAL #3: Transfer sit to/from stand CGA to SBA Goal to be met by: 05/12/23 GOAL #4: pt amb 100ft with rwx with CGA x 1 without LOB Goal to be met by: 05/12/23 GOAL #5: Improve BLE strength 4 to 4+/5 Goal to be met by: 05/12/23 Teleprinter Installer Goals GOAL #1: pt transfer sup to/from sit to/from stand SBA to independent Goal to be met by: 05/16/23 GOAL #2: pt amb with rwx functional household distances SBA Goal to be met by: 05/16/23 GOAL #3: Ascend/descend 2 steps w handrail CGA Goal to be met by: 05/16/23 Plan Plan of Care: Therapeutic EX and Therapeutic Activity Other:: gait training Frequency of Treatment: 1-2 X day, as tolerated Duration of Treatment: 5-7 days Anticipated Discharge Destination: Home (vs swing bed ) Treatment Diagnosis (ICD 10 Codes): impaired balance R 26.81 gait difficulty R 26.2 weakness BLE M62.81 fall risk Has the Physician been added for Co-signature?: Yes
[2023-05-09] MEDS: NON-FORMULARY MEDICATION (Dulaglutide [Trulicity] 1.5 mg/0.5 mL pen injector) SUBCUT SCH (12:50)
[2023-05-09] MEDS: MORPHINE 2 MG/ML SYRINGE IVP ONE (18:01)
[2023-05-09] MEDS ORDERED: HYDRALAZINE HCL IVP PRN (21:04)
[2023-05-10 05:32] LABS: BASOPHILS % (AUTO) 0.3 % (0.0-3.0); EOSINOPHILS # (AUTO) 0.1 K/ul (0.0-0.7); EOSINOPHILS % (AUTO) 1.2 % (0.0-7.0); HEMATOCRIT 35.1 % (37.0-47.0); IMMATURE GRANULOCYTE # (AUTO) 0.1 (0.0-1.0); IMMATURE GRANULOCYTE % (AUTO) 1.9 % (0.0-5.0); LYMPHOCYTES # (AUTO) 1.1 K/uL (0.60-3.4); LYMPHOCYTES % (AUTO) 14.4 (10.0-50.0); MEAN CORPUSCULAR HEMOGLOBIN 27.9 pg (27.0-31.0); MEAN CORPUSCULAR HGB CONC 31.3 (31.8-35.4); MEAN CORPUSCULAR VOLUME 89.1 fl (81.0-99.0); MONOCYTES # (AUTO) 1.1 K/uL (0.4-2.0); MONOCYTES % (AUTO) 15.6 (0-10); NEUTROPHILS # (AUTO) 4.9 K/ul (2.0-6.9); NEUTROPHILS % (AUTO) 66.6 % (42.2-75.2); PLATELET COUNT 126 10^3/uL (140-440); RDW COEFFICIENT OF VARIATION 14.3 % (11.6-14.8); RED BLOOD COUNT 3.94 10^6/ul (4.20-5.40)
[2023-05-10 05:45] LABS: ALANINE AMINOTRANSFERASE 44.3 U/L (0-35); ALBUMIN 2.77 g/dL (3.5-5.0); ALKALINE PHOSPHATASE 128.9 U/L (53-141); ASPARTATE AMINO TRANSFERASE 30.3 U/L (14-36); BILIRUBIN,TOTAL 0.67 mg/dL (0.2-1.3); BLOOD UREA NITROGEN 19.1 mg/dL (7-17); CALCIUM 8.69 mg/dL (8.4-10.2); CARBON DIOXIDE 26.6 mmol/L (22-30.0); CHLORIDE 105.7 mmol/L (98-107); CREATININE 0.59 mg/dL (0.60-1.30); GLUCOSE 193.4 mg/dL (74-106); POTASSIUM 3.86 mmol/L (3.5-5.1); SODIUM 135.5 mmol/L (134.5-145); TOTAL PROTEIN 5.71 g/dL (6.3-8.2)
--- NOTE | 2023-05-10 09:18 | PCM.PROG ---
Date/Time Seen Date Seen by Provider: 05/10/23 Time Seen by Provider: 08:20 Provider Provider: [facility]ANTH[facility] BRANTLEY [facility]-C, [facility] Chief Complaint Chief Complaint: HYPERGLYCEMIA, LEUKOCYTOSIS Subjective Subjective: Patient states she's feeling better today than yesterday. Still complains of neck and back pain. States her pain radiates down her right arm. Denies chest pain. Has murmur, states she was told years ago she has a murmur. No artificial hardware. No mechanical heart valves. Discussed again with her that we do not have a source for her blood infection. A possible cause could be endocarditis, and we discussed what that means and how it is diagnosed. She is agreeable to a TTE but not a VAZQUEZ. She understands that a VAZQUEZ would be a better diagnostic tool to diagnose endocarditis and this could change her duration of antibiotics. She will require 14 days total of IV antibiotics due to her staph aureus bacteremia. Objective Appearance: Positive No Apparent Distress and Alert and Oriented x3 Chest/Lungs: Positive Symmetrical With Equal Breath Sounds and Clear to Auscultation Bilaterally Heart: Positive RRR, Pulses Normal and Murmur GI/: Positive Soft, Nontender, Bowel Sounds Normal and No Distention Neurological: Positive Sensation Intact, Motor intact, Cranial Nerves Intact, Alert, Oriented and Other (expressive aphasia, improved ) Additional Findings: +romberg negative. Follows commands. Facial expressions symmetrical. Report Checker strength equal. Able to put chin to chest. No rigidity. No point tenderness of cervical spine. Has pain with general ROM. Vital Signs Vital Signs: Vital Signs: Last 24 Hours 05/09/23 10:00 05/09/23 10:05/09/23 13:00 Temperature 97 F L Temperature Source Temporal Artery Scan Pulse Rate 91 Respiratory Rate 18 Blood Pressure 172/68 H Blood Pressure Mean 102 Blood Pressure Location Left Arm Blood Pressure Position Sitting O2 Sat by Pulse Oximetry 98 98 Oxygen Delivery Method Room Air Nasal Cannula Oxygen Flow Rate 2 Telemetry Type Bedside Monitor Telemetry Monitoring Continues Telemetry Heart Rate 95 EKG [place] Interval 0.32 H EKG QRS Interval 0.16 H Telemetry Strip Reading SINUS RHYTHYM 1ST DERGRE AVB AND BBB 05/09/23 14:00 05/09/23 14:00 05/09/23 17:46 Temperature 97.9 F 97.7 F Temperature Source Tympanic Tympanic Pulse Rate 96 96 Respiratory Rate 24 H 16 Blood Pressure 160/82 H 238/80 H Blood Pressure Mean 108 132 Blood Pressure Location Left Arm Left Arm Blood Pressure Position Supine Sitting O2 Sat by Pulse Oximetry 94 L 96 97 Oxygen Delivery Method Room Air Room Air Room Air Oxygen Flow Rate Telemetry Type Telemetry Monitoring Telemetry Heart Rate EKG AZ Interval EKG QRS Interval Telemetry Strip Reading 05/09/23 19:00 05/09/23 19:00 05/09/23 19:40 Temperature Temperature Source Pulse Rate 91 Respiratory Rate 20 Blood Pressure 166/75 H Blood Pressure Mean 105 Blood Pressure Location Blood Pressure Position O2 Sat by Pulse Oximetry Oxygen Delivery Method Room Air Nasal Cannula Oxygen Flow Rate 2 Telemetry Type Remote Telemetry Telemetry Monitoring Continues Telemetry Heart Rate 92 EKG AZ Interval 0.18 EKG QRS Interval 0.06 Telemetry Strip Reading SR 05/09/23 19:43 05/09/23 22:00 05/10/23 00:36 Temperature 98.6 F Temperature Source Temporal Artery Scan Pulse Rate 91 79 Respiratory Rate 16 16 Blood Pressure 182/87 H 175/77 H Blood Pressure Mean 118 109 Blood Pressure Location Left Arm Right Arm Blood Pressure Position Supine Supine O2 Sat by Pulse Oximetry 97 96 99 Oxygen Delivery Method Room Air Room Air Nasal Cannula Oxygen Flow Rate 2 Telemetry Type Telemetry Monitoring Telemetry Heart Rate EKG AZ Interval EKG QRS Interval Telemetry Strip Reading 05/10/23 01:00 05/10/23 02:00 05/10/23 05:12 Temperature 97.1 F L 96.4 F L Temperature Source Temporal Artery Scan Temporal Artery Scan Pulse Rate 83 82 Respiratory Rate 16 18 Blood Pressure 179/90 H 165/67 H Blood Pressure Mean 119 99 Blood Pressure Location Right Arm Left Arm Blood Pressure Position Supine Supine O2 Sat by Pulse Oximetry 99 98 Oxygen Delivery Method Nasal Cannula Nasal Cannula Oxygen Flow Rate 2 2 Telemetry Type Remote Telemetry Telemetry Monitoring Continues Telemetry Heart Rate 75 EKG [place] Interval 0.19 EKG QRS Interval 0.05 L Telemetry Strip Reading SR 05/10/23 05:21 Temperature Temperature Source Pulse Rate Respiratory Rate Blood Pressure Blood Pressure Mean Blood Pressure Location Blood Pressure Position O2 Sat by Pulse Oximetry 97 Oxygen Delivery Method Nasal Cannula Oxygen Flow Rate 2 Telemetry Type Telemetry Monitoring Telemetry Heart Rate EKG AZ Interval EKG QRS Interval Telemetry Strip Reading Lab Results Lab Results: Lab Results: Last 24 Hours 05/10/23 05/09/23 05:13 05:13 WBC 7.30 RBC 3.94 L Hgb 11.0 L Hct 35.1 L MCV 89.1 MCH 27.9 MCHC 31.3 L RDW Coeff of [place] 14.3 Plt Count 126 L Immature Gran % (Auto) 1.9 Neut % (Auto) 66.6 Lymph % (Auto) 14.4 [place] % (Auto) 15.6 H Eos % (Auto) 1.2 Baso % (Auto) 0.3 Neut # (Auto) 4.9 Lymph # (Auto) 1.1 [place] # (Auto) 1.1 Eos # (Auto) 0.1 Baso # (Auto) 0.0 Immature Gran # (Auto) 0.1 Sodium 135.5 Potassium 3.86 Chloride 105.7 Carbon Dioxide 26.6 Anion Gap 7.06 BUN 19.1 H Creatinine 0.59 L Estimated GFR (MDRD) 96.00 BUN/Creatinine Ratio 32.37 Glucose 193.4 H Calcium 8.69 Total Bilirubin 0.67 AST 30.3 D ALT 44.3 H D Alkaline Phosphatase 128.9 Total Creatine Kinase < 20.0 L Total Protein 5.71 L Albumin 2.77 L Globulin 2.94 Albumin/Globulin Ratio 0.94 Additional Comments Additional Comments: I have independently reviewed and interpreted the labs/EKGs/imaging ordered during this hospital stay. I have reviewed outside records that are available in our EMR that pertain to medical stay including imaging/notes/labs from previous visits. Active Medications Active Medications: Medications Generic Name Dose Route Start Last Admin Trade Name Freq PRN Reason Stop Dose Admin Acetaminophen 650 mg 05/05/23 16:39 05/10/23 08:54 Acetaminophen 325 Mg Tablet PO 650 mg Q4H PRN Administration Mild Pain Amlodipine Besylate 5 mg 05/07/23 11:30 05/10/23 08:15 Amlodipine Besylate 5 Mg Tablet PO 5 mg DAILY LUIZA Administration Aspirin 81 mg 05/08/23 07:30 05/10/23 08:14 Aspirin 81 Mg Tab.Chew PO 81 mg DAILYWM2 LUIZA Administration Atorvastatin Calcium 40 mg 05/07/23 21:00 05/09/23 20:09 Atorvastatin Calcium 20 Mg Tablet PO 40 mg BEDTIME LUIZA Administration Bisacodyl 5 mg 05/10/23 08:55 Bisacodyl 5 Mg Tablet.Dr PO DAILY PRN Constipation Ergocalciferol 50,000 unit 05/09/23 09:00 05/09/23 08:22 Ergocalciferol (Vitamin D2) 50,000 Unit Capsule PO 50,000 unit WEEKLY LUIZA Administration Escitalopram Oxalate 5 mg 05/06/23 09:00 05/10/23 08:15 Escitalopram Oxalate 10 Mg Tablet PO 5 mg DAILY LUIZA Administration Glimepiride 4 mg 05/09/23 11:30 05/10/23 08:15 Glimepiride 2 Mg Tablet PO 4 mg BIDWM2 LUIZA Administration Hydralazine HCl 5 mg 05/09/23 21:04 Hydralazine Hcl 20 Mg/Ml Sdv IVP Q6H PRN Hypertension Hydrocortisone 1 applic 05/07/23 09:00 05/10/23 08:19 Hydrocortisone 28 Gm Cream TP 1 applic DAILY LUIZA Administration Cefazolin Sodium/Dextrose 2 gm in 100 mls @ 150 mls/hr 05/08/23 13:00 05/10/23 04:19 Ancef 1 Gm/50 Ml D5w IV 05/12/23 22:00 150 mls/hr Q8HR LUIZA Administration Insulin Human Regular 0 unit 05/07/23 12:09 05/10/23 06:05 Insulin Regular, Human 100 Unit/Ml (10ml) Vial SUBCUT 4 unit PRN PRN Administration Hyperglycemia Protocol Non-Formulary Medication 1.5 mg 05/09/23 11:15 05/09/23 12:50 Dulaglutide [Trulicity] SUBCUT 1.5 mg WEEKLY LUIZA Administration Ondansetron HCl 4 mg 05/05/23 16:39 Ondansetron Hcl/Pf 4 Mg/2 Ml Sdv IVP Q6H PRN Nausea / Vomiting Polyethylene Glycol 17 gm 05/09/23 09:00 05/10/23 08:16 Polyethylene Glycol 17 Gm Powd.Pack PO 17 gm DAILY LUIZA Administration Sodium Chloride 1 syr 05/09/23 21:00 05/10/23 04:19 0.9% Sodium Chloride 10 Ml Disp.Syrin IVF 1 syr Q8HR LUIZA Administration Plan Plan: 1. Bacteremia due to staph aureus - Unclear source. Blood cultures positive for staph aureus, switched to ancef per pharmacy on 05/07, was on vanc and cefepime prior. Repeat cultures drawn on 05/06 negative so far, procal trending down, WBC count trended down. Pt improving clinically. Pt will require 14 days IV total of ancef from repeat negative cultures on 05/06, last dose on 05/19. Echo today. Pt declines VAZQUEZ to r/o endocarditis. 2. Hyponatremia - Resolved 3. Thrombocytopenia - Improving, secondary to #1, monitor 4. Diabetes, type 2 - ada diet, accuchecks qid with ssi, hold oral agents, A1c 8 5. Lung nodules - Noted on CTA. Discussed options with patient, does not wish for intervention 6. LAITH - CPAP or oxygen 7. Vaginitis - treating with hydrocortisone to affected area 8. Expressive aphasia - continues to have expressive aphasia though much improved, started on asa and atorvastatin, family does not want patient on blood thinners due to age - discussed risks vs benefit, will need PT/OT/ST on d/c. Pt declines MRI brain to further evaluate. 9. Transaminitis - Improved. likely reactive due to #1, monitor, especially with starting statin. 10. Chronic neck and back pain - Worsened due to all the above. CT of C spine and T spine negative. Pain improves with analgesics. Robaxin added. DVT Prophylaxis: Holding due to thrombocytopenia, kelsie schafer Dispo: Pt will require additional therapy and a total of 14 days of IV antibiotics, last dose being 05/19. Plan to transition to swingbed when insurance approves. Update: Patient agreeable to mri brain and cervical spine to further evaluate symptoms, studies have been ordered. Review Statement Review Statement: I have personally discussed and reviewed the patient's visit/currently labs/imaging/decision making with Dr. Garcia, my supervising attending. Greater that 50 minutes spent with patient, 50% of the time spent with this patient was devoted to counseling and coordination of care.
[2023-05-10] MEDS: DULCOLAX PO PRN (09:31)
[2023-05-10] MEDS: ROBAXIN PO PRN (11:52)
--- NOTE | 2023-05-10 16:53 | MRI ---
EXAMINATION: MAGNETIC RESONANCE IMAGING (MRI) OF THE BRAIN WITHOUT CONTRAST HISTORY: Right hand weakness and expressive aphasia. TECHNIQUE: Multiplanar multi-weighted MRI of the brain and brainstem was performed without intravenou s contrast using the general brain protocol. Contrast: None. COMPARISON: CT head 05/05/2023 FINDINGS: Parenchyma: 5 mm focus of increased DWI in the right rm radiata, axial DWI image 15, with normali zed ADC and associated FLAIR hyperintensity. No acute hemorrhage. No mass effect or midline shift. Craniocervical junction is normal. Chronic Change: Scattered and patchy foci of T2/FLAIR hyperintensity in the periventricular and subco rtical white matter, which are nonspecific, however likely represent mild to moderate chronic microva scular ischemia. No remote microhemorrhages. Mild to moderate generalized cortical volume loss. Ventricles/Extra-axial Spaces: Ventricles are concordant with the degree of parenchymal volume loss. Normal basal cisterns. Sella/Skull Base: Pituitary and sella are normal on noncontrast exam. Paranasal Sinuses/Mastoids: Small mucous retention cysts in the maxillary sinuses. Mastoid air cells are clear. Orbits: Bilateral artificial lens replacements. Vasculature: Normal flow voids in the carotid arteries and basilar artery. Calvarium/Scalp: Normal marrow. No soft tissue swelling. Limited Cervical Spine: No significant abnormality. 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 No mass effect or hemorrhage.
--- NOTE | 2023-05-10 17:00 | MRI ---
EXAMINATION: MRI OF THE CERVICAL SPINE WITH AND WITHOUT CONTRAST HISTORY: Neck pain and right-sided radiculopathy. TECHNIQUE: Multiplanar, multi-weighted magnetic resonance imaging (MRI) of the cervical spine with an d without intravenous contrast was peformed. Contrast: 13 mL of clariscan. COMPARISON: CT cervical spine 05/05/2023 FINDINGS: Slight reversal of the normal cervical lordosis. There is slight edema and enhancement of the C5 and C6 vertebral bodies with extraosseous soft tissue and/or fluid collections in the adjacent prevertebral and ventral epidural spaces. There is associa kelsie prevertebral edema throughout the cervical spine. Mild mass effect upon the cord from C5-C7. As sociated edema and enhancement of the longus colli muscles. Moderate degenerative disc disease of C5-C7. No endplate erosion. No fracture. Dzimp-Lm-Bvtdm Changes: -Atlantoaxial Joint: Mild degenerative changes. -C2-C3: The disk is normal in configuration. There is mild right facet arthropathy. There is no un covertebral joint arthropathy. There is mild right neural foraminal stenosis. There is no spinal ca nal stenosis. -C3-C4: The disk is normal in configuration. There is no facet arthropathy. There is no uncoverteb ral joint arthropathy. There is no neural foraminal stenosis. There is no spinal canal stenosis. -C4-C5: Tiny disc osteophyte complex. There is mild right facet arthropathy. There is mild bilater al uncovertebral joint arthropathy. There is moderate right neural foraminal stenosis. There is mil d spinal canal stenosis. -C5-C6: Disc osteophyte complex. There is mild bilateral facet arthropathy. There is moderate bila teral uncovertebral joint arthropathy. There is no neural foraminal stenosis. There is mild to mode rate spinal canal stenosis. -C6-C7: Disc osteophyte complex. There is mild bilateral facet arthropathy. There is moderate bila teral uncovertebral joint arthropathy. There is moderate bilateral neural foraminal stenosis. There is mild to moderate spinal canal stenosis. -C7-T1: The disk is normal in configuration. There is moderate right facet arthropathy. There is m ild right neural foraminal stenosis. There is no spinal canal stenosis. Visualized Upper Thoracic Spine: No significant spinal canal or neural foraminal stenosis. IMPRESSION: Edema and enhancement of the C4-C5 vertebral bodies with associated prevertebral and ventral epidural soft tissue and/or fluid collections. Associated prevertebral and longus colli edema. Findings may represent diskitis osteomyelitis, however given lack of endplate erosion, atypical and fungal organi sms could be considered and marrow replacing neoplasm such as lymphoma is not excluded. Multilevel degenerative changes of the cervical spine as detailed.
[2023-05-10] MEDS: MORPHINE 2 MG/ML SYRINGE IVP PRN (17:08)
--- NOTE | 2023-05-10 18:15 | PCM.PROG ---
EXAMINATION: MAGNETIC RESONANCE IMAGING (MRI) OF THE BRAIN WITHOUT CONTRAST HISTORY: Right hand weakness and expressive aphasia. TECHNIQUE: Multiplanar multi-weighted MRI of the brain and brainstem was performed without intravenous contrast using the general brain protocol. Contrast: None. COMPARISON: CT head 05/05/2023 FINDINGS: Parenchyma: 5 mm focus of increased DWI in the right rm radiata, axial DWI image 15, with normalized ADC and associated FLAIR hyperintensity. No acute hemorrhage. No mass effect or midline shift. Craniocervical junction is normal Chronic Change: Scattered and patchy foci of T2/FLAIR hyperintensity in the periventricular and subcortical white matter, which are nonspecific, however likely represent mild to moderate chronic microvascular ischemia. No remote microhemorrhages. Mild to moderate generalized cortical volume loss. Ventricles/Extra-axial Spaces: Ventricles are concordant with the degree of parenchymal volume loss. Normal basal cisterns. Sella/Skull Base: Pituitary and sella are normal on noncontrast exam. Paranasal Sinuses/Mastoids: Small mucous retention cysts in the maxillary sinuses. Mastoid air cells are clear. Orbits: Bilateral artificial lens replacements. Vasculature: Normal flow voids in the carotid arteries and basilar artery. Calvarium/Scalp: Normal marrow. No soft tissue swelling. Limited Cervical Spine: No significant abnormality. 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 No mass effect or hemorrhage. EXAMINATION: MRI OF THE CERVICAL SPINE WITH AND WITHOUT CONTRAST HISTORY: Neck pain and right-sided radiculopathy. TECHNIQUE: Multiplanar, multi-weighted magnetic resonance imaging (MRI) of the cervical spine with and without intravenous contrast was peformed. Contrast: 13 mL of clariscan. COMPARISON: CT cervical spine 05/05/2023 FINDINGS: Slight reversal of the normal cervical lordosis. There is slight edema and enhancement of the C5 and C6 vertebral bodies with extraosseous soft tissue and/or fluid collections in the adjacent prevertebral and ventral epidural spaces. There is associated prevertebral edema throughout the cervical spine. Mild mass effect upon the cord from C5-C7. Associated edema and enhancement of the longus colli muscles. Moderate degenerative disc disease of C5-C7. No endplate erosion. No fracture. Xlcbp-Zw-Jymlc Changes: -Atlantoaxial Joint: Mild degenerative changes. -C2-C3: The disk is normal in configuration. There is mild right facet arthropathy. There is no uncovertebral joint arthropathy. There is mild right neural foraminal stenosis. There is no spinal canal stenosis. -C3-C4: The disk is normal in configuration. There is no facet arthropathy. There is no uncovertebral joint arthropathy. There is no neural foraminal stenosis. There is no spinal canal stenosis. -C4-C5: Tiny disc osteophyte complex. There is mild right facet arthropathy. There is mild bilateral uncovertebral joint arthropathy. There is moderate right neural foraminal stenosis. There is mild spinal canal stenosis. -C5-C6: Disc osteophyte complex. There is mild bilateral facet arthropathy. There is moderate bilateral uncovertebral joint arthropathy. There is no neural foraminal stenosis. There is mild to moderate spinal canal stenosis. -C6-C7: Disc osteophyte complex. There is mild bilateral facet arthropathy. There is moderate bilateral uncovertebral joint arthropathy. There is moderate bilateral neural foraminal stenosis. There is mild to moderate spinal canal stenosis. -C7-T1: The disk is normal in configuration. There is moderate right facet arthropathy. There is mild right neural foraminal stenosis. There is no spinal canal stenosis. Visualized Upper Thoracic Spine: No significant spinal canal or neural foraminal stenosis. IMPRESSION: Edema and enhancement of the C4-C5 vertebral bodies with associated prevertebral and ventral epidural soft tissue and/or fluid collections. Associated prevertebral and longus colli edema. Findings may represent diskitis osteomyelitis, however given lack of endplate erosion, atypical and fungal organisms could be considered and marrow replacing neoplasm such as lymphoma is not excluded. Multilevel degenerative changes of the cervical spine as detailed. Spoke with patient regarding these findings. Concern for possible osteomyelitis causing her bacteremia. Recommended transfer to high level of care. Patient and son agree with plan of care. 1730 Jain and Jweell at [facility]. 1744 [facility] will call back with neurosx. [address] Monson, neurosurgeon at [facility]. He recommends higher level of care. 1949 [facility] will call back with ortho. [address] Garza, orthopedics. States they will consult. Admit to hospitalist. Awaiting hospitalist to call. [address] Silva, hospitalist who accepts patient. However she will be on a wait list and they have patients waiting from 05/02.
[2023-05-10] MEDS: ULTRAM PO PRN (20:57)
[2023-05-11 05:27] LABS: BASOPHILS % (AUTO) 0.1 % (0.0-3.0); EOSINOPHILS # (AUTO) 0.1 K/ul (0.0-0.7); EOSINOPHILS % (AUTO) 0.6 % (0.0-7.0); HEMATOCRIT 35.7 % (37.0-47.0); HEMOGLOBIN 11.3 g/dl (12.0-16.0); IMMATURE GRANULOCYTE # (AUTO) 0.2 (0.0-1.0); IMMATURE GRANULOCYTE % (AUTO) 2.2 % (0.0-5.0); LYMPHOCYTES # (AUTO) 1.3 K/uL (0.60-3.4); LYMPHOCYTES % (AUTO) 13.8 (10.0-50.0); MEAN CORPUSCULAR HGB CONC 31.7 (31.8-35.4); MEAN CORPUSCULAR VOLUME 88.6 fl (81.0-99.0); MONOCYTES # (AUTO) 1.2 K/uL (0.4-2.0); MONOCYTES % (AUTO) 12.8 (0-10); NEUTROPHILS # (AUTO) 6.7 K/ul (2.0-6.9); NEUTROPHILS % (AUTO) 70.5 % (42.2-75.2); PLATELET COUNT 150 10^3/uL (140-440); RDW COEFFICIENT OF VARIATION 14.3 % (11.6-14.8); RED BLOOD COUNT 4.03 10^6/ul (4.20-5.40); WHITE BLOOD COUNT 9.51 K/ul (4.6-10.2)
[2023-05-11 05:45] LABS: ALANINE AMINOTRANSFERASE 26.6 U/L (0-35); ALBUMIN 2.95 g/dL (3.5-5.0); ALKALINE PHOSPHATASE 125.7 U/L (53-141); ASPARTATE AMINO TRANSFERASE 27.9 U/L (14-36); BILIRUBIN,TOTAL 0.74 mg/dL (0.2-1.3); BLOOD UREA NITROGEN 16.9 mg/dL (7-17); CALCIUM 8.66 mg/dL (8.4-10.2); CARBON DIOXIDE 30.3 mmol/L (22-30.0); CHLORIDE 98.2 mmol/L (98-107); CREATININE 0.54 mg/dL (0.60-1.30); GLUCOSE 204.2 mg/dL (74-106); POTASSIUM 3.86 mmol/L (3.5-5.1); SODIUM 130.6 mmol/L (134.5-145); TOTAL PROTEIN 6.02 g/dL (6.3-8.2)
--- NOTE | 2023-05-11 08:31 | ECHO2D ---
Date of Exam: 05/10/2023 Room #: 115 Ordering Physician: SAMANTHA BRANTLEY NP (HOSPITALIST); TRINI JERONIMO (PCP) Reason for Echo: BACTEREMIA, DIABETES MELLITUS M-Mode Normal Adult Results LV Dimensions Normal Adult Results AoV Opening excursions >1.6 >1.5 LVEDD-base- 3.5-5.8 3.9 Ao root dimensions 2.0-3.7 3.0 LVESD-base- 3.1-4.6 L. Atrium dimensions 1.9-3.8 3.5 Post. Wall thickness 0.8-1.1 1.1 IV septum (thickness) 0.7-1.2 1.2 Post. Wall excursion 0.72-1.3 NORMAL Septal motion NORMAL Systolic motion R. Ventricular cavity 1.5-2.0 NORMAL LVEF 60% 71% Paradoxical septal wall motion NORMAL 2-D : CALCIFIC AORTIC VALVES OTHERWISE NORMAL REPORT. 2-D M Mode Echocardiogram was performed using apical four chamber and left parasternal long and short axis views. Mitral, tricuspid and aortic valves appear to be normal. Contractility of the left ventricle seems to be normal, so is the cavity size. Left atrial cavity size and aortic root appear to be normal. There is no pericardial effusion. There is no thrombus noted in the left ventricle or left atrial cavity. COLOR FLOW: SPECTRAL FLOW THROUGH MITRAL VALVE A WAVE > E WAVE M-MODE: MV: NORMAL AV: CALCIFIC AORTIC VALVES TV: NORMAL PV: NORMAL CHAMBER SIZE: NORMAL WALL MOTION: NORMAL PERICARDIUM: NORMAL INTERPRETATION: 1. BORDERLINE LEFT VENTRICULAR HYPERTROPHY. 2. ALL VALVES NORMAL. 3. NORMAL LEFT VENTRICLE SIZE AND LEFT VENTRICULAR CONTRACTILITY. 4. CALCIFIC AORTIC VALVE LEAFLETS. MTDD
--- NOTE | 2023-05-11 10:39 | PCM.PROG ---
Date/Time Seen Date Seen by Provider: 05/11/23 Time Seen by Provider: 08:30 Provider Provider: SAMANTHA BRANTLEY PA-C, [facility] Chief Complaint Chief Complaint: HYPERGLYCEMIA, LEUKOCYTOSIS Subjective Subjective: Patient states she's feeling better this morning. Her pain is controlled at the moment however she has had a rough night. Son present at bedside. We discussed in detail the findings on her MRIs from yesterday. She has been accepted at [place] but the wait list is very long, will likely be several days-over a week before she gets a bed. Trying other facilities today. Objective Appearance: Positive No Apparent Distress and Alert and Oriented x3 Chest/Lungs: Positive Symmetrical With Equal Breath Sounds and Clear to Auscultation Bilaterally Heart: Positive RRR, Pulses Normal and Murmur GI/: Positive Soft, Nontender, Bowel Sounds Normal and No Distention Neurological: Positive Sensation Intact, Motor intact, Cranial Nerves Intact, Alert, Oriented and Other (expressive aphasia, improved ) Additional Findings: +romberg negative. Follows commands. Facial expressions symmetrical. Automobile Upholsterer strength equal. Able to put chin to chest. No rigidity. Has pain with general ROM of cervical spine. Vital Signs Vital Signs: Vital Signs: Last 24 Hours 05/10/23 13:00 05/10/23 14:00 05/10/23 14:00 Temperature 98.1 F Temperature Source Temporal Artery Scan Pulse Rate 89 Respiratory Rate 19 Blood Pressure 189/86 H Blood Pressure Mean 120 Blood Pressure Location Right Arm Blood Pressure Position Supine O2 Sat by Pulse Oximetry 94 L 93 L Oxygen Delivery Method Room Air Room Air Telemetry Type Remote Telemetry Telemetry Monitoring Continues Telemetry Heart Rate 94 EKG IL Interval 0.16 EKG QRS Interval 0.06 Telemetry Strip Reading SR 05/10/23 18:00 05/10/23 19:00 05/10/23 20:00 Temperature 99 F Temperature Source Temporal Artery Scan Pulse Rate 102 H Respiratory Rate 20 Blood Pressure 156/71 H Blood Pressure Mean 99 Blood Pressure Location Right Femoral Artery Blood Pressure Position Supine O2 Sat by Pulse Oximetry 93 L Oxygen Delivery Method Room Air Room Air Telemetry Type Telemetry Monitoring Discontinued Telemetry Heart Rate EKG IL Interval EKG QRS Interval Telemetry Strip Reading Patient declines to wear 05/10/23 20:00 05/10/23 21:08 05/11/23 01:54 Temperature 99.2 F 97.9 F Temperature Source Temporal Artery Scan Temporal Artery Scan Pulse Rate 98 97 Respiratory Rate 18 18 Blood Pressure 178/88 H 186/92 H Blood Pressure Mean 118 123 Blood Pressure Location Right Arm Right Arm Blood Pressure Position Supine Supine O2 Sat by Pulse Oximetry 93 L 91 L Oxygen Delivery Method Room Air Room Air Room Air Telemetry Type Telemetry Monitoring Telemetry Heart Rate EKG IL Interval EKG QRS Interval Telemetry Strip Reading 05/11/23 04:59 05/11/23 05:14 05/11/23 08:00 Temperature 96.7 F L Temperature Source Temporal Artery Scan Pulse Rate 104 H Respiratory Rate 20 16 Blood Pressure 176/73 H Blood Pressure Mean 107 Blood Pressure Location Left Arm Blood Pressure Position Supine O2 Sat by Pulse Oximetry 92 L Oxygen Delivery Method Room Air Room Air Room Air Telemetry Type Telemetry Monitoring Telemetry Heart Rate EKG IL Interval EKG QRS Interval Telemetry Strip Reading 05/11/23 09:59 05/11/23 10:00 Temperature 97.2 F L Temperature Source Tympanic Pulse Rate 94 Respiratory Rate 19 Blood Pressure 169/91 H Blood Pressure Mean 117 Blood Pressure Location Right Arm Blood Pressure Position Supine O2 Sat by Pulse Oximetry 96 91 L Oxygen Delivery Method Room Air Room Air Telemetry Type Telemetry Monitoring Telemetry Heart Rate EKG IL Interval EKG QRS Interval Telemetry Strip Reading Lab Results Lab Results: Lab Results: Last 24 Hours 05/11/23 04:56 WBC 9.51 RBC 4.03 L Hgb 11.3 L Hct 35.7 L MCV 88.6 MCH 28.0 MCHC 31.7 L RDW Coeff of Juan Antonio 14.3 Plt Count 150 Immature Gran % (Auto) 2.2 Neut % (Auto) 70.5 Lymph % (Auto) 13.8 Andrew % (Auto) 12.8 H Eos % (Auto) 0.6 Baso % (Auto) 0.1 Neut # (Auto) 6.7 Lymph # (Auto) 1.3 Andrew # (Auto) 1.2 Eos # (Auto) 0.1 Baso # (Auto) 0.0 Immature Gran # (Auto) 0.2 Sodium 130.6 L Potassium 3.86 Chloride 98.2 Carbon Dioxide 30.3 H Anion Gap 5.96 BUN 16.9 Creatinine 0.54 L Estimated GFR (MDRD) 107.00 BUN/Creatinine Ratio 31.29 Glucose 204.2 H Calcium 8.66 Total Bilirubin 0.74 AST 27.9 ALT 26.6 Alkaline Phosphatase 125.7 Total Protein 6.02 L Albumin 2.95 L Globulin 3.07 Albumin/Globulin Ratio 0.96 Additional Comments Additional Comments: I have independently reviewed and interpreted the labs/EKGs/imaging ordered during this hospital stay. I have reviewed outside records that are available in our EMR that pertain to medical stay including imaging/notes/labs from previous visits. EXAMINATION: MAGNETIC RESONANCE IMAGING (MRI) OF THE BRAIN WITHOUT CONTRAST HISTORY: Right hand weakness and expressive aphasia. TECHNIQUE: Multiplanar multi-weighted MRI of the brain and brainstem was performed without intravenous contrast using the general brain protocol. Contrast: None. COMPARISON: CT head 05/05/2023 FINDINGS: Parenchyma: 5 mm focus of increased DWI in the right rm radiata, axial DWI image 15, with normalized ADC and associated FLAIR hyperintensity. No acute hemorrhage. No mass effect or midline shift. Craniocervical junction is normal. Chronic Change: Scattered and patchy foci of T2/FLAIR hyperintensity in the periventricular and subcortical white matter, which are nonspecific, however likely represent mild to moderate chronic microvascular ischemia. No remote microhemorrhages. Mild to moderate generalized cortical volume loss. Ventricles/Extra-axial Spaces: Ventricles are concordant with the degree of parenchymal volume loss. Normal basal cisterns. Sella/Skull Base: Pituitary and sella are normal on noncontrast exam. Paranasal Sinuses/Mastoids: Small mucous retention cysts in the maxillary sinuses. Mastoid air cells are clear. Orbits: Bilateral artificial lens replacements. Vasculature: Normal flow voids in the carotid arteries and basilar artery. Calvarium/Scalp: Normal marrow. No soft tissue swelling. Limited Cervical Spine: No significant abnormality. 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 No mass effect or hemorrhage. EXAMINATION: MRI OF THE CERVICAL SPINE WITH AND WITHOUT CONTRAST HISTORY: Neck pain and right-sided radiculopathy. TECHNIQUE: Multiplanar, multi-weighted magnetic resonance imaging (MRI) of the cervical spine with and without intravenous contrast was peformed. Contrast: 13 mL of clariscan. COMPARISON: CT cervical spine 05/05/2023 FINDINGS: Slight reversal of the normal cervical lordosis. There is slight edema and enhancement of the C5 and C6 vertebral bodies with extraosseous soft tissue and/or fluid collections in the adjacent prevertebral and ventral epidural spaces. There is associated prevertebral edema throughout the cervical spine. Mild mass effect upon the cord from C5-C7. Associated edema and enhancement of the longus colli muscles. Moderate degenerative disc disease of C5-C7. No endplate erosion. No fracture. [id number] Changes: -Atlantoaxial Joint: Mild degenerative changes. -C2-C3: The disk is normal in configuration. There is mild right facet arthropathy. There is no uncovertebral joint arthropathy. There is mild right neural foraminal stenosis. There is no spinal canal stenosis. -C3-C4: The disk is normal in configuration. There is no facet arthropathy. There is no uncovertebral joint arthropathy. There is no neural foraminal stenosis. There is no spinal canal stenosis. -C4-C5: Tiny disc osteophyte complex. There is mild right facet arthropathy. There is mild bilateral uncovertebral joint arthropathy. There is moderate right neural foraminal stenosis. There is mild spinal canal stenosis. -C5-C6: Disc osteophyte complex. There is mild bilateral facet arthropathy. T here is moderate bilateral uncovertebral joint arthropathy. There is no neural foraminal stenosis. There is mild to moderate spinal canal stenosis -C6-C7: Disc osteophyte complex. There is mild bilateral facet arthropathy. There is moderate bilateral uncovertebral joint arthropathy. There is moderate bilateral neural foraminal stenosis. There is mild to moderate spinal canal stenosis. -C7-T1: The disk is normal in configuration. There is moderate right facet arthropathy. There is mild right neural foraminal stenosis. There is no spinal canal stenosis. Visualized Upper Thoracic Spine: No significant spinal canal or neural foraminal stenosis. IMPRESSION: Edema and enhancement of the C4-C5 vertebral bodies with associated prevertebral and ventral epidural soft tissue and/or fluid collections. Associated prevertebral and longus colli edema. Findings may represent diskitis osteomyelitis, however given lack of endplate erosion, atypical and fungal organisms could be considered and marrow replacing neoplasm such as lymphoma is not excluded. Multilevel degenerative changes of the cervical spine as detailed Active Medications Active Medications: Medications Generic Name Dose Route Start Last Admin Trade Name Freq PRN Reason Stop Dose Admin Acetaminophen 650 mg 05/05/23 16:39 05/10/23 08:54 Acetaminophen 325 Mg Tablet PO 650 mg Q4H PRN Administration Mild Pain Amlodipine Besylate 5 mg 05/07/23 11:30 05/11/23 08:34 Amlodipine Besylate 5 Mg Tablet PO 5 mg DAILY LUIZA Administration Aspirin 81 mg 05/08/23 07:30 05/11/23 08:44 Aspirin 81 Mg Tab.Chew PO 81 mg DAILYWM2 LUIZA Administration Atorvastatin Calcium 40 mg 05/07/23 21:00 05/10/23 20:43 Atorvastatin Calcium 20 Mg Tablet PO 40 mg BEDTIME LUIZA Administration Bisacodyl 5 mg 05/10/23 08:55 05/10/23 09:31 Bisacodyl 5 Mg Tablet.Dr PO 5 mg DAILY PRN Administration Constipation Ergocalciferol 50,000 unit 05/09/23 09:00 05/09/23 08:22 Ergocalciferol (Vitamin D2) 50,000 Unit Capsule PO 50,000 unit WEEKLY LUIZA Administration Escitalopram Oxalate 5 mg 05/06/23 09:00 05/11/23 08:35 Escitalopram Oxalate 10 Mg Tablet PO 5 mg DAILY LUIZA Administration Glimepiride 4 mg 05/09/23 11:30 05/11/23 08:35 Glimepiride 2 Mg Tablet PO 4 mg [id number] LUIZA Administration Hydralazine HCl 5 mg 05/09/23 21:04 Hydralazine Hcl 20 Mg/Ml Sdv IVP Q6H PRN Hypertension Hydrocortisone 1 applic 05/07/23 09:00 05/11/23 08:38 Hydrocortisone 28 Gm Cream TP 1 applic DAILY LUIZA Administration Cefazolin Sodium/Dextrose 2 gm in 100 mls @ 150 mls/hr 05/08/23 13:00 05/11/23 05:31 Ancef 1 Gm/50 Ml D5w IV 05/12/23 22:00 150 mls/hr Q8HR LUIZA Administration Insulin Human Regular 0 unit 05/07/23 12:09 05/11/23 06:16 Insulin Regular, Human 100 Unit/Ml (10ml) Vial SUBCUT 6 unit PRN PRN Administration Hyperglycemia Protocol Methocarbamol 500 mg 05/10/23 09:18 05/11/23 02:16 Methocarbamol 500 Mg Tablet PO 500 mg TID PRN Administration pain Morphine Sulfate 2 mg 05/10/23 16:29 05/11/23 06:08 Morphine Sulfate 2 Mg/Ml Syringe IVP 2 mg Q6H PRN Administration MODERATE PAIN Non-Formulary Medication 1.5 mg 05/09/23 11:15 05/09/23 12:50 Dulaglutide [Trulicity] SUBCUT 1.5 mg WEEKLY LUIZA Administration Ondansetron HCl 4 mg 05/05/23 16:39 Ondansetron Hcl/Pf 4 Mg/2 Ml Sdv IVP Q6H PRN Nausea / Vomiting Polyethylene Glycol 17 gm 05/09/23 09:00 05/11/23 08:35 Polyethylene Glycol 17 Gm Powd.Pack PO 17 gm DAILY LUIZA Administration Sodium Chloride 1 syr 05/09/23 21:00 05/11/23 05:38 0.9% Sodium Chloride 10 Ml Disp.Syrin IVF 1 syr Q8HR LUIZA Administration Tramadol HCl 50 mg 05/10/23 20:36 05/11/23 02:53 Tramadol Hcl 50 Mg Tablet PO 50 mg Q6H PRN Administration Analgesia Plan Plan: 1. Bacteremia due to staph aureus - Concern for osteomyelitis of c spine as source. Blood cultures positive for staph aureus, switched to ancef per pharmacy on 05/07, was on vanc and cefepime prior. Repeat cultures drawn on 05/06 negative so far, procal trending down, WBC count trended down. Pt improving clinically. Pt will require 14 days IV total of ancef from repeat negative cultures on 05/06 at the very least, last dose on 05/19. Echo negative for vavular abnormalities. Working on transfer to higher level of care. 2. Concern for vertebral osteomyelitis of cervical spine - Cont antibiotics. Pain control. Working on transfer to higher level of care. 3. 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 Cont asa and statin. 4. Hyponatremia - Resolved 5. Thrombocytopenia - Improving, secondary to #1, monitor 6. Diabetes, type 2 - ada diet, accuchecks qid with ssi, hold oral agents, A1c 8 7. Lung nodules - Noted on CTA. Discussed options with patient, does not wish for intervention 8. LAITH - CPAP or oxygen 9. Transaminitis - Improved. likely reactive due to #1, monitor, especially with starting statin. DVT Prophylaxis: Holding due to thrombocytopeniakelsie Dispo: Attempting to transfer to higher level of care. 05/09 1730 [facility] at capacity. 174 [facility] At[facility] will call back with neurosx. [address] Monson, neurosurgeon at [facility]. He recommends higher level of care. 1949 [place] will call back with ortho. [address] Garza, orthopedics. States they will consult. Admit to hospitalist. Awaiting hospitalist to call. [address] Silva, hospitalist who accepts patient. However she will be on a wait list and they have patients waiting from 05/02. 05/10 102 [place] - at capacity 1025 [facility] - At capacity but will put on wait list. 11:25 [facility] - Spoke with Dr. Ovalle, hospitalist at [facility], accepts patient. Will be a few days before bed is available. 1230: [facility] - Dr. Ko, hospitalist accepts. Could be later today for a bed. Review Statement Review Statement: I have personally discussed and reviewed the patient's visit/currently labs/imaging/decision making with Dr. Garcia, my supervising attending. Greater that 50 minutes spent with patient, 50% of the time spent with this patient was devoted to counseling and coordination of care.
[2023-05-11 14:34] VITALS: BP 155/64; PULSE 99; RESP 20; TEMP 98.4
--- NOTE | 2023-05-11 14:51 | DCSUM ---
Admission Date Admission Date: 05/05/23 Discharge Date Discharge Date: 05/11/23 Admission Diagnosis Admission Diagnosis: 1. Sepsis 2. Hyponatremia 3. Thrombocytopenia Discharge Diagnosis Discharge Diagnosis: 1. Bacteremia due to staph aureus 2. Concern for vertebral osteomyelitis of cervical spine 3. Acute CVA 4. Hyponatremia 5. Thrombocytopenia 6. Diabetes, type 2 7. Lung nodules 8. LAITH 9. Transaminitis Hospital Provider Hospital Provider: SAMANTHA BRANTLEY PA-C, [facility] Primary Care Physician Primary Care Physician: TRINI JERONIMO Summary of History and Physical Summary of History and Physical: 87 yo female presented to the ER with complaints of neck/back pain. Son reports that patient has generally not felt well over the last couple days. No specific complaints other than the midback/neck pain. 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 Describes the pain as a spasm. Denies any fever at home, chills, chest pain, sob, n/v/d. Denies any open wounds. Has reddened area to left labia that "has been there for a long time". No open area, just redness present. Patient's WBC count in ER was found to be 22. No obvious source of infection. Ct head, c spine, t spine negative for acute findings. Patient spiked fever prior to admission and blood cultures were obtained. Given rocephin in ER. Admitted to med/surg for sepsis r/o. Patient has been intermittently confused since admission. Hospital Course Subjective: Patient was treated empirically with cefepime and vancomycin for sepsis. Her initial blood cultures came back positive for Staph aureus. Her antibiotics were changed to Ancef on 05/07. Repeat cultures drawn on 05/06 have since been negative. Of note on 05/06 patient became more alert and was trying to converse but had some expressive aphasia. Concern for acute CVA. MRI is not available on the weekends here. She was started on a baby aspirin and statin. By Tuesday her expressive aphasia had resolved. At this time she was declining an MRI of her brain as she did not feel it would change anything. There was concern for endocarditis as there was no known source for the Staph aureus bacteremia. Patient does have a murmur. She thinks she was told in the past that she had a murmur but she is not sure of details. She did not want to be transferred for [facility]. 2D echo was performed here and no obvious abnormalities were noted per Dr. Kimberly Garcia. Normal EF. Formal report not available yet. Overall her neck and back pain had improved and she was mostly just feeling achy. She had also not ran a fever since the day of admission. All of her infectious markers including white blood cell count and procalcitonin were trending down. CRP is a send out at this facility and therefore not utilized. However on Tuesday 05/09 patient was complaining again of severe neck pain and requiring IV pain medication. She was agreeable to MRI. MRI of the brain did confirm a 5 mm subacute stroke on the right side. MRI of the cervical spine revealed edema and enhancement of the C4- C5 vertebral bodies with associated prevertebral and ventral epidural soft tissue and/or fluid collections. There is concern for discitis osteomyelitis atypical and fungal organisms or marrow replacing neoplasm such as lymphoma. With her having Staph aureus bacteremia osteomyelitis is high on the differential. Due to this a higher level of care is necessary. Patient and son were updated on imaging findings and plan of care. Discussed that a higher level of care may recommend simply extended antibiotics all the way to procedures. Patient was accepted at [facility] by Dr. Ko hospitalist. Stable at time of transfer. Appearance: Pleasant, No Apparent Distress and Alert HEENT: MMM CVS: Other (+RRR, +MURMUR ) Abdomen: Soft, Non-Tender and No Distention Respiratory: No Accessory Muscle Use Extremities: No Edema Additional Findings: +PAIN WITH ROM OF CERVICAL SPINE. NO OPEN WOUNDS. GENERALIZED WEAKNESS, NO FOCAL DEFICITS. Vital Signs: Most Recent Vital Signs Temperature 98.4 F 05/11/23 14:00 Temperature Source Tympanic 05/11/23 14:00 Temperature Source Infrared 05/05/23 16:30 Pulse Rate 99 05/11/23 14:00 Respiratory Rate 20 05/11/23 14:00 Blood Pressure 155/64 H 05/11/23 14:00 Blood Pressure Mean 94 05/11/23 14:00 Blood Pressure Left Arm 184/56 05/05/23 18:31 Blood Pressure Location Left Arm 05/11/23 14:00 Blood Pressure Position Supine 05/11/23 14:00 O2 Sat by Pulse Oximetry 91 L 05/11/23 14:00 Oxygen Delivery Method Room Air 05/11/23 14:00 Oxygen Flow Rate 2 05/10/23 05:21 Height 5 ft 5 in 05/07/23 19:59 Weight 151 lb 12.8 oz 05/07/23 19:59 Telemetry Type Remote Telemetry 05/10/23 13:00 Telemetry Monitoring Discontinued 05/10/23 19:00 Irregular Telemetry Rate (Approximate) 70-80 BPM 05/10/23 07:00 Telemetry Heart Rate 94 05/10/23 13:00 EKG TX Interval 0.16 05/10/23 13:00 EKG QRS Interval 0.06 05/10/23 13:00 Telemetry Strip Reading Patient declines to wear 05/10/23 19:00 Imaging: EXAM: HEAD CT WITHOUT CONTRAST IMPRESSION: 1. No acute intracranial process. 2. Mild microangiopathic ischemic changes and atrophy are noted. EXAM: CT ABDOMEN AND PELVIS WITHOUT CONTRAST IMPRESSION: 1. No acute findings in the abdomen or pelvis. 2. Colonic diverticulosis is identified, without diverticulitis. 3. Cholelithiasis. EXAM: CT THORACIC SPINE WITHOUT CONTRAST FINDINGS: Axial CT images of the thoracic spine without contrast and multiplanar reformatted images. Generalized osteopenia. This limits evaluation for subtle, nondisplaced fractures. As seen, no discrete fracture line. The vertebral body heights are grossly maintained. Multilevel degenerative changes. Curvature of the spine. Suspected bone island in the T4 vertebral body. ASVD. Atelectasis and / or scarring in the dependent lungs. IMPRESSION: No definitive findings of acute fracture. If symptoms persist, or if there is clinical concern for occult injury, recommend follow-up MRI examination. EXAM: CT CERVICAL SPINE. FINDINGS: There is slight anterolisthesis of C4 and C5 measuring less than 2 mm. The vertebral heights are well maintained. There are no acute or healing fractures. There are no lytic or blastic lesions. No disc bulges are identified. The soft tissues are normal. The airway is widely patent. Limited views of the lung apices are normal. C 2-3: There is hypertrophy on the right. No spinal canal or neural foraminal narrowing. C 3-4: Disc narrowing. Facet hypertrophy, left greater right. Minimal left neural foraminal narrowing C 4-5: Disc narrowing. Facet perch on the right. Right neural foraminal narrowing. C 5-6: Disc narrowing. Anterior posterior osteophytes. Mild bilateral neural foraminal narrowing. C 6-7: Disc narrowing. Posterior osteophytes. Minimal bilateral neural foraminal narrowing. IMPRESSION: 1. No acute fractures. 2. Degenerative changes of the spine as described. EXAM: CHEST CTA WITH CONTRAST (PULMONARY ARTERY) FINDINGS: Lines, Tubes, Devices: None. Pulmonary Embolism: - Diagnostic quality: Evaluation of the subsegmental vessels in the lung base is limited due to motion artifact.. - Central(Main/Lobar/Interlobar): No embolus. - Peripheral (Segmental/Subsegmental): No embolus. - Right ventricle/Left ventricle ratio (normal <0.9): Normal. Lung Parenchyma and Airways: Central airways are patent without endobronchial lesion. No focal consolidation. There is a noncalcified nodule in the right middle lobe, axial image 59 of series five. There is a second noncalcified nodule in the right middle lobe measuring up to 0.7 x 0.6 cm also in the right middle lobe, axial image 87. On the coronal reformats, this may the larger, measuring up to 1.6 cm. However evaluation limited due to motion.. Pleural Space: No pleural effusion. No pleural thickening. No pneumothorax. Thoracic Inlet, Mediastinum, and Marcy: Thyroid gland is normal. There is right hilar lymph node measuring 1.3 cm.. Heart, Vessels, and Pericardium: -Aorta is normal in caliber with mild atherosclerotic calcifications. -Main pulmonary artery is normal in caliber. -Heart chambers are not enlarged. -No significant valvular calcifications. -No significant coronary artery calcifications, however exam is not optimized for evaluation. -No pericardial effusion or thickening. Bones and Soft Tissues: Visualized bones are within normal limits. Chest wall soft tissues are within normal limits. Upper Abdomen: Within normal limits. IMPRESSION: 1. Technically limited study due to motion artifact. Evaluation of the segmental vessels in the lung bases is limited. No definite pulmonary embolus. 2. No acute pulmonary disease. 3. Pulmonary nodules in the right middle lobe. Evaluation is limited due to the motion artifact. Consider follow-up and 3 months. EXAMINATION: MAGNETIC RESONANCE IMAGING (MRI) OF THE BRAIN WITHOUT CONTRAST HISTORY: Right hand weakness and expressive aphasia. TECHNIQUE: Multiplanar multi-weighted MRI of the brain and brainstem was performed without intravenous contrast using the general brain protocol. Contrast: None. COMPARISON: CT head 05/05/2023 FINDINGS: Parenchyma: 5 mm focus of increased DWI in the right rm radiata, axial DWI image 15, with normalized ADC and associated FLAIR hyperintensity. No acute hemorrhage. No mass effect or midline shift. Craniocervical junction is normal Chronic Change: Scattered and patchy foci of T2/FLAIR hyperintensity in the periventricular and subcortical white matter, which are nonspecific, however likely represent mild to moderate chronic microvascular ischemia. No remote microhemorrhages. Mild to moderate generalized cortical volume loss. Ventricles/Extra-axial Spaces: Ventricles are concordant with the degree of parenchymal volume loss. Normal basal cisterns. Sella/Skull Base: Pituitary and sella are normal on noncontrast exam. Paranasal Sinuses/Mastoids: Small mucous retention cysts in the maxillary sinuses. Mastoid air cells are clear. Orbits: Bilateral artificial lens replacements. Vasculature: Normal flow voids in the carotid arteries and basilar artery. Calvarium/Scalp: Normal marrow. No soft tissue swelling. Limited Cervical Spine: No significant abnormality. 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 No mass effect or hemorrhage. EXAMINATION: MRI OF THE CERVICAL SPINE WITH AND WITHOUT CONTRAST HISTORY: Neck pain and right-sided radiculopathy. TECHNIQUE: Multiplanar, multi-weighted magnetic resonance imaging (MRI) of the cervical spine with and without intravenous contrast was peformed. Contrast: 13 mL of clariscan. COMPARISON: CT cervical spine 05/05/2023 FINDINGS: Slight reversal of the normal cervical lordosis. There is slight edema and enhancement of the C5 and C6 vertebral bodies with extraosseous soft tissue and/or fluid collections in the adjacent prevertebral and ventral epidural spaces. There is associated prevertebral edema throughout the cervical spine. Mild mass effect upon the cord from C5-C7. Associated edema and enhancement of the longus colli muscles. Moderate degenerative disc disease of C5-C7. No endplate erosion. No fracture. Mockt-Wz-Yunnf Changes: -Atlantoaxial Joint: Mild degenerative changes. -C2-C3: The disk is normal in configuration. There is mild right facet arthropathy. There is no uncovertebral joint arthropathy. There is mild right neural foraminal stenosis. There is no spinal canal stenosis. -C3-C4: The disk is normal in configuration. There is no facet arthropathy. There is no uncovertebral joint arthropathy. There is no neural foraminal stenosis. There is no spinal canal stenosis. -C4-C5: Tiny disc osteophyte complex. There is mild right facet arthropathy. There is mild bilateral uncovertebral joint arthropathy. There is moderate right neural foraminal stenosis. There is mild spinal canal stenosis. -C5-C6: Disc osteophyte complex. There is mild bilateral facet arthropathy. There is moderate bilateral uncovertebral joint arthropathy. There is no neural foraminal stenosis. There is mild to moderate spinal canal stenosis. -C6-C7: Disc osteophyte complex. There is mild bilateral facet arthropathy. There is moderate bilateral uncovertebral joint arthropathy. There is moderate bilateral neural foraminal stenosis. There is mild to moderate spinal canal stenosis. -C7-T1: The disk is normal in configuration. There is moderate right facet arthropathy. There is mild right neural foraminal stenosis. There is no spinal canal stenosis. Visualized Upper Thoracic Spine: No significant spinal canal or neural foraminal stenosis. IMPRESSION: Edema and enhancement of the C4-C5 vertebral bodies with associated prevertebral and ventral epidural soft tissue and/or fluid collections. Associated prev ertebral and longus colli edema. Findings may represent diskitis osteomyelitis, however given lack of endplate erosion, atypical and fungal organisms could be considered and marrow replacing neoplasm such as lymphoma is not excluded. Multilevel degenerative changes of the cervical spine as detailed. Lab Results Last 24 Hours: 05/11/23 04:56 WBC 9.51 RBC 4.03 L Hgb 11.3 L Hct 35.7 L MCV 88.6 MCH 28.0 MCHC 31.7 L RDW Coeff of Juan Antonio 14.3 Plt Count 150 Immature Gran % (Auto) 2.2 Neut % (Auto) 70.5 Lymph % (Auto) 13.8 Allen % (Auto) 12.8 H Eos % (Auto) 0.6 Baso % (Auto) 0.1 Neut # (Auto) 6.7 Lymph # (Auto) 1.3 Allen # (Auto) 1.2 Eos # (Auto) 0.1 Baso # (Auto) 0.0 Immature Gran # (Auto) 0.2 Sodium 130.6 L Potassium 3.86 Chloride 98.2 Carbon Dioxide 30.3 H Anion Gap 5.96 BUN 16.9 Creatinine 0.54 L Estimated GFR (MDRD) 107.00 BUN/Creatinine Ratio 31.29 Glucose 204.2 H Calcium 8.66 Total Bilirubin 0.74 AST 27.9 ALT 26.6 Alkaline Phosphatase 125.7 Total Protein 6.02 L Albumin 2.95 L Globulin 3.07 Albumin/Globulin Ratio 0.96 Discharge Instructions Discharge Planning: Discharge Planning > [address] Silvina Garcia. Discharge Medications: Medications at Discharge (Home Meds & RX) Discharge Plan Discharge Discharge Orders: Discharge Patient (ONCE); Ordered 05/11/23 Ordered By: SAMANTHA BRANTLEY Activity Restrictions/Additional Instructions: TRANSFER TO [facility] short stay room # 2 ACCEPTING PHYSICIAN: DR. 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
== END 2023-05-11 18:03 | disposition short-term general hospital (02) | DRG 872 ==
LOC: ED 11:52 → MEDSURG B 11:52
PROVIDERS: ADMIT Hospitalist; ATTEND Physician Assistant
DX: M85.80 Other specified disorders of bone density and structure, unspecified site; E87.1 Hypo-osmolality and hyponatremia; K80.00 Calculus of gallbladder with acute cholecystitis without obstruction; B95.61 Methicillin susceptible Staphylococcus aureus infection as the cause of diseases classified elsewhere; A41.9 Sepsis, unspecified organism; E11.43 Type 2 diabetes mellitus with diabetic autonomic (poly)neuropathy; F80.1 Expressive language disorder; D69.6 Thrombocytopenia, unspecified; R50.9 Fever, unspecified; K57.30 Diverticulosis of large intestine without perforation or abscess without bleeding; J98.11 Atelectasis; I49.8 Other specified cardiac arrhythmias; E11.65 Type 2 diabetes mellitus with hyperglycemia